=== PATIENT | female | born 1945 | race Caucasian/White ===

== ENCOUNTER 2017-03-25 18:05 | Emergency (ER) | payer OTHER ==
[2017-03-25 18:09] VITALS: BP 150/80; BMI 68.6
--- NOTE | 2017-03-25 18:37 | DR.GENAD ---
HPI - PCP Primary Care Physician: deric - HPI Comment HPI Comment: DENIES DYSURIA, DIZZINESS OR FEVER. BELIEVE BLOOD IS COMING FROM HER HEMORRHOID. PATIENT IS ON COUMADIN. - Complaint/Symptoms Chief Complaint Doctors Comments: RECTAL BLEEDING AND DISCOMFORT. ONE EPISODE LAST NIGHT AND ONE TODAY. Chief Complaint:: patient stated she startd bleeding from her bottom last night and it started back this evening. - Nurses notes reviewed Nurses Notes Review: Yes - Source History Provided: Patient - Mode of Arrival Mode of Arrival: Wheelchair - Timing Onset of Chief Complaint: 03/24/17 Came on: Suddenly - Duration Duration: Constant Duration: Days - Severity Severity: Moderate PMH - PMH Past Medical History: Yes Past Medical History: COPD, Coronary Artery Disease, Diabetes, GERD, Hypertension Past Surgical History: Yes Surgical History: Angioplasty/Stents, Hysterectomy, Ortho Surgery - Family History History of Family Medical Conditions: Yes Family Medical History: Diabetes Mellitus, Cancer, [place], Hypertension - Social History Does patient currently use any type of tobacco product: Yes Have you used tobacco products in the last 12 months: Yes Type of Tobacco Use: Cigarettes How many years tobacco product used: 40 Does any household member use tobacco: Yes Alcohol Use: None Do you use any recreational Drugs:: No Lives With: Family Lives Where: Home - infectious screening In the last 2 months have you had wt loss of >10#?: NO Have you had fever, night sweats or hemotysis?: No Have you traveled outside the country in the last 6 months?: No Isolation: Standard ROS - Review of Systems Constitutional: No Symptoms Reported Eyes: No Symptoms Reported ENTM: No Symptoms Reported Respiratoy: No Symptoms Reported Cardiovascular: No Symptoms Reported Gastrointestinal/Abdominal: No Symptoms Reported, Other (RECTAL BLEEDING.) Genitourinary: No Symptoms Reported Neurological: No Symptoms Reported Musculoskeletal: No Symptoms Reported Integumentary: No Symptoms Reported Hematologic/Lymphatic: No Symptoms Reported, Easy Bleeding, Easy Bruising Endocrine: No Symptoms Reported All Other Systems: Reviewed and Negative PE - Vital Signs Vitals: Temperature 98.9 F Pulse Rate 80 Respiratory Rate 16 Blood Pressure [Left Arm] 103/62 Blood Pressure 150/80 O2 Sat by Pulse Oximetry 100 - General Limitations: No Limitations General Appearance: Alert - Head Head Exam: Normal Inspection - Eyes Eye exam: Normal Appearance - ENT ENT Exam: Normal External Ear Exam External Ear Exam: Normal External Inspection TM/Canal Exam: Bilateral Normal Nose Exam: Normal Nose Exam Mouth Exam: Normal Inspection Throat Exam: Normal Inspection - Neck Neck Exam: Normal Inspection - Chest Chest Inspection: Symmetric Chest Wall Rise - Respiratory Respiratory Exam: Normal Lung Sounds Bilat Respiratory Exam: Bilateral Clear to Auscultation - Cardiovascular Cardiovascular Exam: Regular Rate, Normal Rhythm, Normal Heart Sounds - Abdominal Exam Abdominal Exam: Normal Bowel Sounds, Soft, Other (EXTERNAL HEMORRHOID WITH RECENT BLEEDING. NO ACTIVE BLEERTR). negative: Tenderness - Extremities Extremities Exam: Edema - Back Back Exam: Paraspinal Tenderness - Neurologic Neurological Exam: Alert, Oriented X3 - Psychiatric Psychiatric Exam: Normal Affect, Normal Mood - Skin Skin Exam: Erythema MDM - Additional Information Additional Information Obtained From: Family - Differential Diagnosis Differential Diagnosis: HEMORRHOID, RECTAL BLEEDING, COUMADIN THERAPY. Course - Treatment Treatment: SEE ORDERS. - Education/Counseling Education/Counseling: Patient, Education Educated On: Diagnosis, Needs for Follow Up ROR - Labs Reviewed Laboratory Results Reviewed?: Yes Result Diagrams: 03/25/17 18:51 03/25/17 18:51 Laboratory: WBC 6.3 X10^3/uL (3.6-10.0) 03/25/17 18:51 RBC 4.16 X10^6/uL (3.5-5.4) 03/25/17 18:51 Hgb 12.4 g/dL (12.0-16.0) 03/25/17 18:51 Hct 36.8 % (36.0-47.0) 03/25/17 18:51 MCV 88.6 fL (80.0-100.0) 03/25/17 18:51 MCH 29.9 pg (27.0-34.0) 03/25/17 18:51 MCHC 33.7 g/dL (33.0-35.0) 03/25/17 18:51 RDW 16.9 % (11.6-16.5) H 03/25/17 18:51 Plt Count 254 X10^3/uL (150.0-450.0) 03/25/17 18:51 MPV 8.9 fL (7.4-11.0) 03/25/17 18:51 Neut % 53.9 % (42.0-75.0) 03/25/17 18:51 Lymph % 33.8 % (21.0-51.0) 03/25/17 18:51 [place] % 10.8 % (0.0-13.0) 03/25/17 18:51 Eos % 0.9 % (0.9-2.9) 03/25/17 18:51 Baso % 0.6 % (0.2-1.0) 03/25/17 18:51 Neut # 3.4 x10^3/uL (2.2-4.8) 03/25/17 18:51 Lymph # 2.1 X10^3/uL (1.3-2.9) 03/25/17 18:51 [place] # 0.7 x10^3/uL (0.3-0.8) 03/25/17 18:51 Eos # 0.1 x10^3/uL (0.0-0.2) 03/25/17 18:51 Baso # 0.0 X10^3/uL (0.0-0.1) 03/25/17 18:51 Absolute Nucleated RBC 0.0 /100WBC 03/25/17 18:51 INR Target Range - 03/25/17 18:51 INR 1.86 (0.8-1.3) H 03/25/17 18:51 PTT 34.4 SECONDS (22.9-36.5) 03/25/17 18:51 PTT Comment - 03/25/17 18:51 Sodium 142 mmol/L (136-145) 03/25/17 18:51 Corrected Sodium 143 mmol/L (136-145) 03/25/17 18:51 Potassium 3.5 mmol/L (3.5-5.1) 03/25/17 18:51 Chloride 104 mmol/L (98-107) 03/25/17 18:51 Carbon Dioxide 27.9 mmol/L (21-32) 03/25/17 18:51 BUN 13 mg/dL (7-18) 03/25/17 18:51 Creatinine 1.10 mg/dL (0.55-1.02) H 03/25/17 18:51 Est GFR (MDRD) Af Amer > 60 (>60) 03/25/17 18:51 Est GFR (MDRD) Non-Af 52 (>60) L 03/25/17 18:51 Glucose 129 mg/dL (65-99) H 03/25/17 18:51 Calcium 8.8 mg/dL (8.5-10.1) 03/25/17 18:51 Corrected Calcium TNP 03/25/17 18:51 Total Bilirubin 0.40 mg/dL (0.2-1.0) 03/25/17 18:51 AST 15 Units/L (15-37) 03/25/17 18:51 ALT 23 Units/L (12-78) 03/25/17 18:51 Alkaline Phosphatase 66 Units/L (46-116) 03/25/17 18:51 Total Protein 8.2 g/dL (6.4-8.2) 03/25/17 18:51 Albumin 3.8 g/dL (3.4-5.0) 03/25/17 18:51 Globulin 4.4 g/dL (2.5-4.5) 03/25/17 18:51 Albumin/Globulin Ratio 0.9 Ratio (1.1-2.1) L 03/25/17 18:51 Specimen Type Clean catch urine 03/25/17 19:23 Urine Color Yellow (YELLOW) 03/25/17 19:23 Urine Appearance Hazy (CLEAR) 03/25/17 19:23 Urine pH 6.0 (5.0 - 8.0) 03/25/17 19:23 Ur Specific [place] 1.015 (1.000-1.030) 03/25/17 19:23 Urine Protein Negative (NEGATIVE) 03/25/17 19:23 Urine Glucose (UA) Negative (NEGATIVE) 03/25/17 19:23 Urine Ketones Negative (NEGATIVE) 03/25/17 19:23 Urine Occult Blood 2+ (NEGATIVE) 03/25/17 19:23 Urine Nitrite Negative (NEGATIVE) 03/25/17 19:23 Urine Bilirubin Negative (NEGATIVE) 03/25/17 19:23 Urine Urobilinogen Normal (NORMAL) 03/25/17 19:23 Ur Leukocyte Esterase Negative (NEGATIVE) 03/25/17 19:23 Urine RBC 0-2 /HPF (NEGATIVE) 03/25/17 19:23 Urine WBC 0-2 /HPF (NEGATIVE) 03/25/17 19:23 Ur Squamous Epith Cells Few /HPF (NEGATIVE) 03/25/17 19:23 Urine Bacteria Trace /HPF (NEGATIVE) 03/25/17 19:23 Ur Culture Indicated? No/not indicated 03/25/17 19:23 - Diagnosis Discharge Problem: Acute hemorrhoid, Rectal bleeding - Discharge Plan Disposition: 01 HOME, SELF-CARE Condition: Stable Prescriptions: Hydrocortisone Supp 25 mg [Anucort-Hc Supp] 25 mg RECTAL BID PRN #24 supp PRN Reason: Hemmorhoid Itching/Discomfort Ranitidine HCl [ZANTAC TAB 150 MG *] 150 mg PO BID #60 tab - Follow ups/Referrals Follow ups/Referrals: ELIZABETH DURAN [Primary Care Provider] - 03/26/17 - Instructions Instructions: Hemorrhoids, [id number], Gastrointestinal Bleeding, Easy-to- Read Additional Instructions: RETURN TO ED IF WORSE.
[2017-03-25 19:00] LABS: BASOPHILS % (AUTO) 0.6 % (0.2-1.0); EOSINOPHILS # (AUTO) 0.1 x10^3/uL (0.0-0.2); EOSINOPHILS % (AUTO) 0.9 % (0.9-2.9); HEMATOCRIT 36.8 % (36.0-47.0); HEMOGLOBIN 12.4 g/dL (12.0-16.0); LYMPHOCYTES # (AUTO) 2.1 X10^3/uL (1.3-2.9); LYMPHOCYTES % (AUTO) 33.8 % (21.0-51.0); MEAN CORPUSCULAR HEMOGLOBIN 29.9 pg (27.0-34.0); MEAN CORPUSCULAR HGB CONC 33.7 g/dL (33.0-35.0); MEAN CORPUSCULAR VOLUME 88.6 fL (80.0-100.0); MEAN PLATELET VOLUME 8.9 fL (7.4-11.0); MONOCYTES # (AUTO) 0.7 x10^3/uL (0.3-0.8); MONOCYTES % (AUTO) 10.8 % (0.0-13.0); NEUTROPHILS # (AUTO) 3.4 x10^3/uL (2.2-4.8); NEUTROPHILS % (AUTO) 53.9 % (42.0-75.0); PLATELET COUNT 254 X10^3/uL (150.0-450.0); RED BLOOD COUNT 4.16 X10^6/uL (3.5-5.4); RED CELL DISTRIBUTION WIDTH 16.9 % (11.6-16.5); WHITE BLOOD COUNT 6.3 X10^3/uL (3.6-10.0)
[2017-03-25 19:11] LABS: ALANINE AMINOTRANSFERASE 23 Units/L (12-78); ALBUMIN 3.8 g/dL (3.4-5.0); ALKALINE PHOSPHATASE 66 Units/L (46-116); ASPARTATE AMINO TRANSFERASE 15 Units/L (15-37); BLOOD UREA NITROGEN 13 mg/dL (7-18); CALCIUM 8.8 mg/dL (8.5-10.1); CARBON DIOXIDE 27.9 mmol/L (21-32); CHLORIDE 104 mmol/L (98-107); COR NA(FOR HYPERGLY) 143 mmol/L (136-145); SODIUM 142 mmol/L (136-145); TOTAL PROTEIN 8.2 g/dL (6.4-8.2); eGFR BLACK RACES > 60 (>60); eGFR NON BLACK RACES 52 (>60)
[2017-03-25 19:32] LABS: BILIRUBIN,URINE NEGATIVE (NEGATIVE); BLOOD/HEMOGLOBIN,URINE 2+ (NEGATIVE); GLUCOSE, URINE NEGATIVE (NEGATIVE); KETONES,URINE NEGATIVE (NEGATIVE); LEUKOCYTE ESTERASE ,URINE NEGATIVE (NEGATIVE); NITRITES,URINE NEGATIVE (NEGATIVE); PROTEIN,URINE NEGATIVE (NEGATIVE); UROBILINOGEN,URINE NORMAL (NORMAL)
[2017-03-25 19:38] LABS: APPEARANCE,URINE HAZY (CLEAR); BACTERIA,URINE TRACE /HPF (NEGATIVE); COLOR,URINE YELLOW (YELLOW); RBC,URINE 0-2 /HPF (NEGATIVE); SQUAMOUS EPITHELIAL CELL,UR FEW /HPF (NEGATIVE)
[2017-03-25] MEDS ORDERED: ANUCORT-HC SUPP PR ONE (19:54)
[2017-03-25] MEDS ORDERED: ZANTAC PO ONE (19:54)
== END 2017-03-25 20:03 | disposition home or self-care (01) ==
LOC: ER 18:14
DX: K64.8 Other hemorrhoids (principal); K62.5 Hemorrhage of anus and rectum
CPT/HCPCS: 36415; 80053; 81001; 85025; 85610; 85730; 99282; 99283

== ENCOUNTER 2017-03-26 13:40 | Observation (INO) | payer OTHER ==
[2017-03-26] MEDS ORDERED: HumuLIN R SUBCUT PRN ×2 (13:50→13:53)
[2017-03-26] MEDS ORDERED: NORCO 10/325 TAB PO PRN (13:52)
[2017-03-26] MEDS ORDERED: ZOFRAN INJ 4 MG VIAL IVP PRN (13:53)
--- NOTE | 2017-03-26 13:55 | DR.H&P ---
H&P - History & Physical for Day of: H&P Date: 03/26/17 - Chief Complaint Chief Complaint: RECTAL BLEEDING - Allergies Allergies/Adverse Reactions: Allergies Allergy/AdvReac Type Severity Reaction Status Date / Time No Known Drug Allergies Allergy Verified 03/25/17 18:06 - History of Present Illness History of Present Illness: patient is a 71-year-old white female who was a direct admit from Dr. Patel's office. Patient presented to the office today with complaints of rectal bleeding. Patient states she was seen in the ER last night and was discharged home. Patient is on Coumadin therapy due to atrophia. Patient states bleeding has been on and off for the last 2-3 weeks. Patient reports dark tarry stool and occasional large bloody clots in the toilet. Patient denies any nausea vomiting. Patient states if she is nothing by mouth diarrhea is controlled. Patient had a rectal exam in the office with nonthrombosed external hemorrhoids and no palpable internal hemorrhoids with a positive Hemoccult. Patient was admitted for further evaluation of rectal bleed. Plan to obtain admission labs, anemia panel, PT/INR, respiratory therapy and blood sugar and blood pressure control. - Past Medical History Past Medical History: COPD, Coronary Artery Disease, Diabetes, GERD, Hypertension - Past Surgical History Surgical History: Angioplasty/Stents, Hysterectomy, Ortho Surgery - Family History Family Medical History: Diabetes Mellitus, Cancer, [place], Hypertension - Social History Does patient currently use any type of tobacco product: Yes Have you used tobacco products in the last 12 months: Yes Type of Tobacco Use: Cigarettes Does any household member use tobacco: Yes Alcohol Use: None Drug Use: None - Review of Systems Constitutional: Weakness Eyes: No Symptoms Reported ENT: No Symptoms Reported Respiratory: Shortness of Breath, SOB with Excertion, Wheezing Cardiovascular: Palpitations, Edema, Light Headedness Gastrointestinal: Diarrhea, Hematochezia Genitourinary: Frequency Musculoskeletal: Shoulder Pain, Back Pain, Leg Pain Neurological: Weakness - Physical Exam Vital Signs: Blood Pressure [Left Arm] 103/62 Blood Pressure 150/80 Oriented: Normal Eyes: Normal Ear: Normal Nose: Normal Throat: Dry Respiratory: Diminished Throughout Cardiovascular: Irregular, Edema : Normal Auscultation: Bowel Sounds: Normal Tenderness: Epigastric Skin: Decreased Turgur Musculoskeletal: Shoulder, Knee, Back:Thoracic, Back:Lumbar, Motor Deficit Psychiatric: Depression Affect: Anxious Speech Pattern: Clear, Appropriate - Assessment/Plan (1) Lower GI bleed Status: Acute Plan: ADMIT, CBC CMP UA UC PT INR ON ADMISSION. ANEMIA PROFILE, OCCULT STOOL. PPI THERAPY, RESP CONSULT. ABD SERIES, IV CIPRO. BLOOD SUGAR CONTROL (2) Coronary Artery Disease Status: Active (3) Diabetes mellitus type 2 Status: Active (4) Essential hypertension Status: Active (5) Gastroesophageal reflux disease Status: Active
[2017-03-26] MEDS ORDERED: NS 1000 ML 1,000 ML IV SCH (14:00)
[2017-03-26 15:03] LABS: BASOPHILS # (AUTO) 0.1 X10^3/uL (0.0-0.1); EOSINOPHILS # (AUTO) 0.1 x10^3/uL (0.0-0.2); HEMATOCRIT 37.8 % (36.0-47.0); HEMOGLOBIN 12.7 g/dL (12.0-16.0); LYMPHOCYTES # (AUTO) 1.6 X10^3/uL (1.3-2.9); LYMPHOCYTES % (AUTO) 26.5 % (21.0-51.0); MEAN CORPUSCULAR HEMOGLOBIN 29.7 pg (27.0-34.0); MEAN CORPUSCULAR HGB CONC 33.5 g/dL (33.0-35.0); MEAN CORPUSCULAR VOLUME 88.8 fL (80.0-100.0); MEAN PLATELET VOLUME 9.4 fL (7.4-11.0); MONOCYTES # (AUTO) 0.6 x10^3/uL (0.3-0.8); MONOCYTES % (AUTO) 10.4 % (0.0-13.0); NEUTROPHILS # (AUTO) 3.7 x10^3/uL (2.2-4.8); NEUTROPHILS % (AUTO) 61.1 % (42.0-75.0); PLATELET COUNT 257 X10^3/uL (150.0-450.0); RED BLOOD COUNT 4.26 X10^6/uL (3.5-5.4); RED CELL DISTRIBUTION WIDTH 17.1 % (11.6-16.5); WHITE BLOOD COUNT 6.1 X10^3/uL (3.6-10.0)
[2017-03-26 15:37] LABS: BLOOD UREA NITROGEN 11 mg/dL (7-18); CARBON DIOXIDE 26.4 mmol/L (21-32); CHLORIDE 105 mmol/L (98-107); COR NA(FOR HYPERGLY) 144 mmol/L (136-145); CREATININE 1.27 mg/dL (0.55-1.02); SODIUM 143 mmol/L (136-145); TROPONIN I < 0.02 ng/mL (0-1.5); eGFR BLACK RACES 54 (>60); eGFR NON BLACK RACES 44 (>60)
[2017-03-26 15:41] LABS: ALANINE AMINOTRANSFERASE 23 Units/L (12-78); ALBUMIN 3.8 g/dL (3.4-5.0); ALKALINE PHOSPHATASE 68 Units/L (46-116); ASPARTATE AMINO TRANSFERASE 19 Units/L (15-37); CKMB % 0.9 % (<4); CREATINE KINASE 151 Units/L (26-192); CREATINE KINASE MB 1.4 ng/mL (0-4.0); MAGNESIUM 2.1 mg/dL (1.7-2.9); TOTAL PROTEIN 8.2 g/dL (6.4-8.2)
[2017-03-26 15:45] LABS: IRON 42 ug/dL (50-175); TRANSFERRIN 274 mg/dL (202-364)
[2017-03-26] MEDS: XOPENEX 1.25 MG/3 ML NEBULE NEB SCH ×2 (16:29→21:27)
[2017-03-26] MEDS ORDERED: XOPENEX 1.25 MG/3 ML NEBULE NEB SCH (17:00)
[2017-03-26] MEDS ORDERED: BUTT CREAM (COMPOUND) TOP PRN (19:02)
[2017-03-26] MEDS ORDERED: SNACK - Diabetic Appropriate PO SCH ×2 (20:00)
[2017-03-26] MEDS: CIPRO IV 400 MG PREMIX* 400 MG/200 ML IV.SOLN. IV SCH (20:03)
[2017-03-26] MEDS: PROTONIX INJ 40 MG VIAL IVP SCH (20:03)
[2017-03-26 20:32] LABS: BILIRUBIN,URINE NEGATIVE (NEGATIVE); BLOOD/HEMOGLOBIN,URINE 2+ (NEGATIVE); GLUCOSE, URINE NEGATIVE (NEGATIVE); KETONES,URINE NEGATIVE (NEGATIVE); LEUKOCYTE ESTERASE ,URINE NEGATIVE (NEGATIVE); NITRITES,URINE NEGATIVE (NEGATIVE); PROTEIN,URINE 1+ (NEGATIVE); UROBILINOGEN,URINE NORMAL (NORMAL)
[2017-03-26 20:37] LABS: APPEARANCE,URINE HAZY (CLEAR); BACTERIA,URINE TRACE /HPF (NEGATIVE); COLOR,URINE YELLOW (YELLOW); SQUAMOUS EPITHELIAL CELL,UR FEW /HPF (NEGATIVE)
[2017-03-26] MEDS ORDERED: PULMICORT NEB TX 0.5 MG NEB SCH (21:00)
[2017-03-26] MEDS: SNACK - Diabetic Appropriate PO SCH (21:00)
[2017-03-26] MEDS: PULMICORT NEB TX 0.5 MG NEB SCH (21:27)
[2017-03-26] MEDS: NORCO 10/325 TAB PO PRN (21:42)
[2017-03-27 06:05] LABS: BASOPHILS % (AUTO) 0.5 % (0.2-1.0); EOSINOPHILS # (AUTO) 0.1 x10^3/uL (0.0-0.2); EOSINOPHILS % (AUTO) 1.6 % (0.9-2.9); HEMATOCRIT 30.3 % (36.0-47.0); HEMOGLOBIN 10.2 g/dL (12.0-16.0); LYMPHOCYTES # (AUTO) 1.3 X10^3/uL (1.3-2.9); LYMPHOCYTES % (AUTO) 28.1 % (21.0-51.0); MEAN CORPUSCULAR HEMOGLOBIN 29.9 pg (27.0-34.0); MEAN CORPUSCULAR HGB CONC 33.5 g/dL (33.0-35.0); MEAN CORPUSCULAR VOLUME 89.2 fL (80.0-100.0); MEAN PLATELET VOLUME 9.9 fL (7.4-11.0); MONOCYTES # (AUTO) 0.6 x10^3/uL (0.3-0.8); MONOCYTES % (AUTO) 13.5 % (0.0-13.0); NEUTROPHILS # (AUTO) 2.5 x10^3/uL (2.2-4.8); NEUTROPHILS % (AUTO) 56.3 % (42.0-75.0); PLATELET COUNT 192 X10^3/uL (150.0-450.0); RED CELL DISTRIBUTION WIDTH 16.5 % (11.6-16.5); WHITE BLOOD COUNT 4.5 X10^3/uL (3.6-10.0)
[2017-03-27 06:07] LABS: ALANINE AMINOTRANSFERASE 18 Units/L (12-78); ALBUMIN 2.8 g/dL (3.4-5.0); ALKALINE PHOSPHATASE 55 Units/L (46-116); ASPARTATE AMINO TRANSFERASE 15 Units/L (15-37); BLOOD UREA NITROGEN 11 mg/dL (7-18); CALCIUM 8.2 mg/dL (8.5-10.1); CARBON DIOXIDE 27.5 mmol/L (21-32); CHLORIDE 107 mmol/L (98-107); COR CA(FOR HYPOALB) 9.2 mg/dL (8.5-10.1); COR NA(FOR HYPERGLY) 144 mmol/L (136-145); CREATININE 1.01 mg/dL (0.55-1.02); SODIUM 143 mmol/L (136-145); TOTAL PROTEIN 6.3 g/dL (6.4-8.2); eGFR BLACK RACES > 60 (>60); eGFR NON BLACK RACES 58 (>60)
[2017-03-27] MEDS ORDERED: MAG-OX TAB PO PRN (06:33)
[2017-03-27] MEDS ORDERED: K-DUR TAB 20 MEQ PO PRN (06:33)
[2017-03-27] MEDS ORDERED: MAGNESIUM SULFATE 1 GM/100 mL PREMIX 1 GM/100 ML BAG IV PRN (06:33)
[2017-03-27] MEDS ORDERED: POTASSIUM CHLORIDE LIQ 20 MEQ UDC PO PRN (06:33)
[2017-03-27] MEDS ORDERED: K-RIDER 10 MEQ/NS 100 ML 10 MEQ/100 ML BAG IV PRN (06:33)
[2017-03-27] MEDS ORDERED: K-LYTE EFFERVESCENT PO PRN (06:33)
[2017-03-27] MEDS: NORCO 10/325 TAB PO PRN ×2 (07:39→18:02)
[2017-03-27] MEDS: NICOTINE PATCH TD SCH (08:59)
[2017-03-27] MEDS: CIPRO IV 400 MG PREMIX* 400 MG/200 ML IV.SOLN. IV SCH ×2 (09:00→21:46)
[2017-03-27] MEDS: PROTONIX INJ 40 MG VIAL IVP SCH ×2 (09:00→21:46)
[2017-03-27] MEDS: XOPENEX 1.25 MG/3 ML NEBULE NEB SCH ×4 (09:05→20:43)
[2017-03-27] MEDS: PULMICORT NEB TX 0.5 MG NEB SCH ×2 (09:05→20:43)
[2017-03-27] MEDS ORDERED: PATIENT'S HOME MEDICATION (Albuterol Sulfate [Proventil Hfa Inhaler 6.7 Gm] 2 INH) IN PRN (09:43)
[2017-03-27 10:12] LABS: HEMATOCRIT 33.3 % (36.0-47.0); HEMOGLOBIN 11.1 g/dL (12.0-16.0)
[2017-03-27 10:37] VITALS: BMI 70.7
[2017-03-27] MEDS: LASIX PO SCH ×2 (14:13→21:49)
[2017-03-27] MEDS: K-DUR TAB 20 MEQ PO SCH ×2 (14:13→21:48)
[2017-03-27] MEDS: NEURONTIN CAP 300 MG PO SCH ×2 (14:13→21:49)
--- NOTE | 2017-03-27 14:22 | RAD ---
HISTORY: Rectal bleeding Study: Acute abdominal series Comparison: None Findings: There is a dual-chamber pacemaker in place. The lungs are clear without consolidation, effusion or pn eumothorax. The cardiac and mediastinal contours are within normal limits. Flat plate and upright evaluation of the abdomen demonstrates a normal bowel gas pattern. No gross fr ee intraperitoneal air. No pathological soft tissue mass or calcification can be observed. The bony structures are grossly intact. IMPRESSION: 1. No acute cardiopulmonary disease. 2. No evidence of acute abdominal pathology. Reported By:
[2017-03-27] MEDS ORDERED: NS 1000 ML 500 ML IV SCH (17:43)
[2017-03-27] MEDS ORDERED: NS 500 ML IV 500 ML IV SCH (17:45)
[2017-03-27] MEDS ORDERED: NS 500 ML IV 500 ML IV ONE (17:46)
[2017-03-27] MEDS ORDERED: NS IRRIGATION 1000 ML 500 ML IV SCH (18:11)
[2017-03-27] MEDS ORDERED: GLUCOPHAGE ONE (20:17)
[2017-03-27] MEDS ORDERED: ZESTRIL TAB 20 MG ONE (20:18)
[2017-03-27] MEDS: ZESTRIL TAB 20 MG PO SCH (21:48)
[2017-03-27] MEDS: ZANTAC PO SCH (21:49)
[2017-03-27] MEDS: LOPRESSOR TAB 50 MG PO SCH (21:49)
[2017-03-27] MEDS: GLUCOPHAGE PO SCH (21:49)
[2017-03-27] MEDS: SNACK - Diabetic Appropriate PO SCH (21:50)
--- NOTE | 2017-03-27 22:14 | PCM.PROG ---
Progress Note - Progress Note for Day of Date: 03/27/17 - Subjective Subjective: patient is a 71-year-old white female who was a direct admit from Dr. Patel's office. Patient presented to the office today with complaints of rectal bleeding. Patient states she was seen in the ER last night and was discharged home. Patient is on Coumadin therapy due to atrophia. Patient states bleeding has been on and off for the last 2-3 weeks. Patient reports dark tarry stool and occasional large bloody clots in the toilet. Patient denies any nausea vomiting. Patient states if she is nothing by mouth diarrhea is controlled. Patient had a rectal exam in the office with nonthrombosed external hemorrhoids and no palpable internal hemorrhoids with a positive Hemoccult. Patient denies any further bleeding. States that 2 days ago was last episode. Currently has CPAP on. - Past Medical Family Social History Past Med/Fam/Surg Hx: No changes since H&P Allergies: Allergies No Known Drug Allergies Allergy (Verified 03/25/17 18:06) - Vital Signs and I&O's Vital Signs: Temperature 97.6 F Pulse Rate [Left Radial] 86 Pulse Rate 78 Respiratory Rate 20 Blood Pressure [Right Arm] 108/52 Blood Pressure [Left Arm] 160/64 Blood Pressure 150/80 O2 Sat by Pulse Oximetry 98 Intake and Output: Intake & Output 03/25/17 03/26/17 03/27/17 03/28/17 11:59 11:59 11:59 11:59 Intake Total 1452 1540 Output Total 500 Balance 1452 1040 - Physical Exam Oriented: Normal Eyes: Normal Ear: Normal Nose: Normal Throat: Dry Respiratory: Diminished, OTHER (CPAP USAGE) Cardiovascular: Irregular, Edema : Normal Auscultation: Bowel Sounds: Normal Palpation: Normal Tenderness: Diffuse, Epigastric Skin: Decreased Turgur Musculoskeletal: Shoulder, Knee, Back:Thoracic, Back:Lumbar, Motor Deficit Psychiatric: Depression Affect: Anxious Speech Pattern: Clear, Appropriate - Laboratory and Diagnostics Result Diagrams: 03/27/17 09:53 03/27/17 10:54 Labs: Laboratory WBC 4.5 X10^3/uL (3.6-10.0) 03/27/17 03:30 RBC 3.40 X10^6/uL (3.5-5.4) L 03/27/17 03:30 Hgb 11.1 g/dL (12.0-16.0) L 03/27/17 09:53 Hct 33.3 % (36.0-47.0) L 03/27/17 09:53 MCV 89.2 fL (80.0-100.0) 03/27/17 03:30 MCH 29.9 pg (27.0-34.0) 03/27/17 03:30 MCHC 33.5 g/dL (33.0-35.0) 03/27/17 03:30 RDW 16.5 % (11.6-16.5) 03/27/17 03:30 Plt Count 192 X10^3/uL (150.0-450.0) 03/27/17 03:30 MPV 9.9 fL (7.4-11.0) 03/27/17 03:30 Neut % 56.3 % (42.0-75.0) 03/27/17 03:30 Lymph % 28.1 % (21.0-51.0) 03/27/17 03:30 [place] % 13.5 % (0.0-13.0) H 03/27/17 03:30 Eos % 1.6 % (0.9-2.9) 03/27/17 03:30 Baso % 0.5 % (0.2-1.0) 03/27/17 03:30 Neut # 2.5 x10^3/uL (2.2-4.8) 03/27/17 03:30 Lymph # 1.3 X10^3/uL (1.3-2.9) 03/27/17 03:30 [place] # 0.6 x10^3/uL (0.3-0.8) 03/27/17 03:30 Eos # 0.1 x10^3/uL (0.0-0.2) 03/27/17 03:30 Baso # 0.0 X10^3/uL (0.0-0.1) 03/27/17 03:30 Absolute Nucleated RBC 0.0 /100WBC 03/27/17 03:30 INR Target Range - 03/26/17 14:55 INR 1.69 (0.8-1.3) H 03/26/17 14:55 Sodium 143 mmol/L (136-145) 03/27/17 03:30 Corrected Sodium 144 mmol/L (136-145) 03/27/17 03:30 Potassium 3.8 mmol/L (3.5-5.1) 03/27/17 10:54 Chloride 107 mmol/L (98-107) 03/27/17 03:30 Carbon Dioxide 27.5 mmol/L (21-32) 03/27/17 03:30 BUN 11 mg/dL (7-18) 03/27/17 03:30 Creatinine 1.01 mg/dL (0.55-1.02) 03/27/17 03:30 Est GFR (MDRD) Af Amer > 60 (>60) 03/27/17 03:30 Est GFR (MDRD) Non-Af 58 (>60) L 03/27/17 03:30 Glucose 137 mg/dL (65-99) H 03/27/17 03:30 POC Glucose (mg/dL) 164 mg/dL (65-99) H 03/27/17 21:57 Calcium 8.2 mg/dL (8.5-10.1) L 03/27/17 03:30 Corrected Calcium 9.2 mg/dL (8.5-10.1) 03/27/17 03:30 Magnesium 2.0 mg/dL (1.7-2.9) 03/27/17 03:30 Iron 42 ug/dL (50-175) L 03/26/17 14:55 Transferrin 274 mg/dL (202-364) 03/26/17 14:55 Ferritin 27 ng/mL (8-252) 03/26/17 14:55 Total Bilirubin 0.30 mg/dL (0.2-1.0) 03/27/17 03:30 AST 15 Units/L (15-37) 03/27/17 03:30 ALT 18 Units/L (12-78) 03/27/17 03:30 Alkaline Phosphatase 55 Units/L (46-116) 03/27/17 03:30 Creatine Kinase 151 Units/L (26-192) 03/26/17 14:55 CK-MB (CK-2) 1.4 ng/mL (0-4.0) 03/26/17 14:55 CK/CKMB % Calc 0.9 % (<4) 03/26/17 14:55 Troponin I < 0.02 ng/mL (0-1.5) 03/26/17 14:55 Total Protein 6.3 g/dL (6.4-8.2) L 03/27/17 03:30 Albumin 2.8 g/dL (3.4-5.0) L 03/27/17 03:30 Globulin 3.5 g/dL (2.5-4.5) 03/27/17 03:30 Albumin/Globulin Ratio 0.8 Ratio (1.1-2.1) L 03/27/17 03:30 Vitamin B12 528 pg/mL (193-986) 03/26/17 14:55 Folate > 20.0 ng/mL (>8.6) 03/26/17 14:55 Specimen Type Clean catch urine 03/26/17 19:41 Urine Color Yellow (YELLOW) 03/26/17 19:41 Urine Appearance Hazy (CLEAR) 03/26/17 19:41 Urine pH 6.0 (5.0 - 8.0) 03/26/17 19:41 Ur Specific [place] 1.015 (1.000-1.030) 03/26/17 19:41 Urine Protein 1+ (NEGATIVE) 03/26/17 19:41 Urine Glucose (UA) Negative (NEGATIVE) 03/26/17 19:41 Urine Ketones Negative (NEGATIVE) 03/26/17 19:41 Urine Occult Blood 2+ (NEGATIVE) 03/26/17 19:41 Urine Nitrite Negative (NEGATIVE) 03/26/17 19:41 Urine Bilirubin Negative (NEGATIVE) 03/26/17 19:41 Urine Urobilinogen Normal (NORMAL) 03/26/17 19:41 Ur Leukocyte Esterase Negative (NEGATIVE) 03/26/17 19:41 Urine RBC 3-5 /HPF (NEGATIVE) 03/26/17 19:41 Urine WBC 0-2 /HPF (NEGATIVE) 03/26/17 19:41 Ur Squamous Epith Cells Few /HPF (NEGATIVE) 03/26/17 19:41 Urine Bacteria Trace /HPF (NEGATIVE) 03/26/17 19:41 Ur Culture Indicated? No/not indicated 03/26/17 19:41 Stool Description 40 grs brown soft 03/27/17 06:26 Stl Occult Blood (IFOB) Negative (NEGATIVE) 03/27/17 06:26 Radiology Reviewed: Yes - Plan (1) Lower GI bleed Status: Acute Plan: H/H, MONITOR STOOLS (2) Coronary Artery Disease Status: Active Plan: MONITOR INR (3) Diabetes mellitus type 2 Status: Active Plan: MONITOR FSBS. SSRI COVERAGE (4) Essential hypertension Status: Active Plan: MONITOR BP. ADMINISTER ANTI-HYPERTENSIVES. (5) Gastroesophageal reflux disease Status: Active Plan: PPI (6) Acute hemorrhoid Status: Acute Plan: MONITOR FOR THROMBOSIS OR BLEEDING. (7) Rectal bleeding Status: Acute Plan: MONITOR BMS
[2017-03-28 05:24] LABS: BASOPHILS % (AUTO) 0.7 % (0.2-1.0); EOSINOPHILS # (AUTO) 0.1 x10^3/uL (0.0-0.2); EOSINOPHILS % (AUTO) 1.9 % (0.9-2.9); HEMATOCRIT 32.2 % (36.0-47.0); HEMOGLOBIN 10.7 g/dL (12.0-16.0); LYMPHOCYTES # (AUTO) 1.2 X10^3/uL (1.3-2.9); LYMPHOCYTES % (AUTO) 25.8 % (21.0-51.0); MEAN CORPUSCULAR HEMOGLOBIN 29.8 pg (27.0-34.0); MEAN CORPUSCULAR HGB CONC 33.4 g/dL (33.0-35.0); MEAN CORPUSCULAR VOLUME 89.2 fL (80.0-100.0); MEAN PLATELET VOLUME 9.8 fL (7.4-11.0); MONOCYTES # (AUTO) 0.6 x10^3/uL (0.3-0.8); MONOCYTES % (AUTO) 13.3 % (0.0-13.0); NEUTROPHILS # (AUTO) 2.8 x10^3/uL (2.2-4.8); NEUTROPHILS % (AUTO) 58.3 % (42.0-75.0); PLATELET COUNT 196 X10^3/uL (150.0-450.0); RED CELL DISTRIBUTION WIDTH 16.6 % (11.6-16.5); WHITE BLOOD COUNT 4.7 X10^3/uL (3.6-10.0)
[2017-03-28 05:31] LABS: BLOOD UREA NITROGEN 8 mg/dL (7-18); CALCIUM 8.2 mg/dL (8.5-10.1); CARBON DIOXIDE 25.2 mmol/L (21-32); CHLORIDE 107 mmol/L (98-107); SODIUM 143 mmol/L (136-145); eGFR BLACK RACES > 60 (>60); eGFR NON BLACK RACES 58 (>60)
[2017-03-28] MEDS: NEURONTIN CAP 300 MG PO SCH ×3 (05:46→21:06)
[2017-03-28] MEDS: NORCO 10/325 TAB PO PRN ×3 (05:46→23:33)
[2017-03-28] MEDS: LASIX PO SCH ×3 (05:46→21:05)
[2017-03-28] MEDS: K-DUR TAB 20 MEQ PO SCH ×3 (05:47→21:05)
[2017-03-28] MEDS ORDERED: COLACE CAP 100 MG PO PRN (05:49)
[2017-03-28] MEDS: PULMICORT NEB TX 0.5 MG NEB SCH ×2 (08:27→20:53)
[2017-03-28] MEDS: XOPENEX 1.25 MG/3 ML NEBULE NEB SCH ×4 (08:27→20:53)
[2017-03-28] MEDS ORDERED: NIACIN 750 MG PO SCH (09:00)
[2017-03-28] MEDS ORDERED: GLUCOPHAGE ONE ×2 (09:37→20:26)
[2017-03-28] MEDS ORDERED: ZESTRIL TAB 20 MG ONE ×2 (09:38→20:27)
[2017-03-28] MEDS: CIPRO IV 400 MG PREMIX* 400 MG/200 ML IV.SOLN. IV SCH ×2 (10:16→21:04)
[2017-03-28] MEDS: TAB-A-VITE PO SCH (10:17)
[2017-03-28] MEDS: LOPRESSOR TAB 50 MG PO SCH ×2 (10:17→21:05)
[2017-03-28] MEDS: LIPITOR TAB 40 MG PO SCH (10:17)
[2017-03-28] MEDS: ZESTRIL TAB 20 MG PO SCH ×2 (10:17→21:04)
[2017-03-28] MEDS: GLUCOPHAGE PO SCH ×2 (10:17→21:05)
[2017-03-28] MEDS: PROTONIX INJ 40 MG VIAL IVP SCH ×2 (10:17→21:04)
[2017-03-28] MEDS: ACTOS PO SCH (10:18)
[2017-03-28] MEDS: NICOTINE PATCH TD SCH (10:18)
[2017-03-28] MEDS: ZANTAC PO SCH ×2 (10:18→21:05)
[2017-03-28] MEDS: SNACK - Diabetic Appropriate PO SCH (21:03)
--- NOTE | 2017-03-28 21:46 | PCM.PROG ---
Progress Note - Progress Note for Day of Date: 03/28/17 - Subjective Subjective: patient is a 71-year-old white female who was a direct admit from Dr. Patel's office. Patient presented to the office today with complaints of rectal bleeding. Patient states she was seen in the ER last night and was discharged home. Patient is on Coumadin therapy due to atrophia. Patient states bleeding has been on and off for the last 2-3 weeks. Patient reports dark tarry stool and occasional large bloody clots in the toilet. Patient denies any nausea vomiting. Patient states if she is nothing by mouth diarrhea is controlled. Patient had a rectal exam in the office with nonthrombosed external hemorrhoids and no palpable internal hemorrhoids with a positive Hemoccult. Patient denies any further bleeding. Patient sitting on side of bed states she feels better. Does ask about going home. States she had a BM and it was dark brown. States that there was pink in the BSC and on the seat. - Past Medical Family Social History Past Med/Fam/Surg Hx: No changes since H&P Allergies: Allergies No Known Drug Allergies Allergy (Verified 03/25/17 18:06) - Review of Systems ROS: No change since H&P - Vital Signs and I&O's Vital Signs: Temperature 97.7 F Pulse Rate [Right Brachial] 60 Pulse Rate [Left Radial] 67 Pulse Rate 78 Respiratory Rate 20 Blood Pressure [Right Arm] 119/58 Blood Pressure [Left Arm] 130/60 Blood Pressure 150/80 O2 Sat by Pulse Oximetry 100 Intake and Output: Intake & Output 03/26/17 03/27/17 03/28/17 03/29/17 11:59 11:59 11:59 11:59 Intake Total 1452 3650 1200 Output Total 1850 Balance 1452 1800 1200 - Physical Exam Oriented: Normal Eyes: Normal Ear: Normal Nose: Normal Throat: Dry Respiratory: Diminished, OTHER (CPAP USAGE) Cardiovascular: Irregular, Edema : Normal Auscultation: Bowel Sounds: Normal Tenderness: Diffuse, Epigastric Skin: Decreased Turgur Musculoskeletal: Shoulder, Knee, Back:Thoracic, Back:Lumbar, Motor Deficit Psychiatric: Depression Affect: Anxious Speech Pattern: Clear, Appropriate - Laboratory and Diagnostics Result Diagrams: 03/28/17 03:05 03/28/17 03:05 Labs: Laboratory WBC 4.7 X10^3/uL (3.6-10.0) 03/28/17 03:05 RBC 3.60 X10^6/uL (3.5-5.4) 03/28/17 03:05 Hgb 10.7 g/dL (12.0-16.0) L 03/28/17 03:05 Hct 32.2 % (36.0-47.0) L 03/28/17 03:05 MCV 89.2 fL (80.0-100.0) 03/28/17 03:05 MCH 29.8 pg (27.0-34.0) 03/28/17 03:05 MCHC 33.4 g/dL (33.0-35.0) 03/28/17 03:05 RDW 16.6 % (11.6-16.5) H 03/28/17 03:05 Plt Count 196 X10^3/uL (150.0-450.0) 03/28/17 03:05 MPV 9.8 fL (7.4-11.0) 03/28/17 03:05 Neut % 58.3 % (42.0-75.0) 03/28/17 03:05 Lymph % 25.8 % (21.0-51.0) 03/28/17 03:05 [place] % 13.3 % (0.0-13.0) H 03/28/17 03:05 Eos % 1.9 % (0.9-2.9) 03/28/17 03:05 Baso % 0.7 % (0.2-1.0) 03/28/17 03:05 Neut # 2.8 x10^3/uL (2.2-4.8) 03/28/17 03:05 Lymph # 1.2 X10^3/uL (1.3-2.9) L 03/28/17 03:05 [place] # 0.6 x10^3/uL (0.3-0.8) 03/28/17 03:05 Eos # 0.1 x10^3/uL (0.0-0.2) 03/28/17 03:05 Baso # 0.0 X10^3/uL (0.0-0.1) 03/28/17 03:05 Absolute Nucleated RBC 0.1 /100WBC 03/28/17 03:05 INR Target Range - 03/26/17 14:55 INR 1.69 (0.8-1.3) H 03/26/17 14:55 Sodium 143 mmol/L (136-145) 03/28/17 03:05 Corrected Sodium TNP 03/28/17 03:05 Potassium 3.6 mmol/L (3.5-5.1) 03/28/17 03:05 Chloride 107 mmol/L (98-107) 03/28/17 03:05 Carbon Dioxide 25.2 mmol/L (21-32) 03/28/17 03:05 BUN 8 mg/dL (7-18) 03/28/17 03:05 Creatinine 1.00 mg/dL (0.55-1.02) 03/28/17 03:05 Est GFR (MDRD) Af Amer > 60 (>60) 03/28/17 03:05 Est GFR (MDRD) Non-Af 58 (>60) L 03/28/17 03:05 Glucose 101 mg/dL (65-99) H 03/28/17 03:05 POC Glucose (mg/dL) 106 mg/dL (65-99) H 03/28/17 20:49 Calcium 8.2 mg/dL (8.5-10.1) L 03/28/17 03:05 Corrected Calcium 9.2 mg/dL (8.5-10.1) 03/27/17 03:30 Magnesium 2.0 mg/dL (1.7-2.9) 03/27/17 03:30 Iron 42 ug/dL (50-175) L 03/26/17 14:55 Transferrin 274 mg/dL (202-364) 03/26/17 14:55 Ferritin 27 ng/mL (8-252) 03/26/17 14:55 Total Bilirubin 0.30 mg/dL (0.2-1.0) 03/27/17 03:30 AST 15 Units/L (15-37) 03/27/17 03:30 ALT 18 Units/L (12-78) 03/27/17 03:30 Alkaline Phosphatase 55 Units/L (46-116) 03/27/17 03:30 Creatine Kinase 151 Units/L (26-192) 03/26/17 14:55 CK-MB (CK-2) 1.4 ng/mL (0-4.0) 03/26/17 14:55 CK/CKMB % Calc 0.9 % (<4) 03/26/17 14:55 Troponin I < 0.02 ng/mL (0-1.5) 03/26/17 14:55 Total Protein 6.3 g/dL (6.4-8.2) L 03/27/17 03:30 Albumin 2.8 g/dL (3.4-5.0) L 03/27/17 03:30 Globulin 3.5 g/dL (2.5-4.5) 03/27/17 03:30 Albumin/Globulin Ratio 0.8 Ratio (1.1-2.1) L 03/27/17 03:30 Vitamin B12 528 pg/mL (193-986) 03/26/17 14:55 Folate > 20.0 ng/mL (>8.6) 03/26/17 14:55 Specimen Type Clean catch urine 03/26/17 19:41 Urine Color Yellow (YELLOW) 03/26/17 19:41 Urine Appearance Hazy (CLEAR) 03/26/17 19:41 Urine pH 6.0 (5.0 - 8.0) 03/26/17 19:41 Ur Specific [place] 1.015 (1.000-1.030) 03/26/17 19:41 Urine Protein 1+ (NEGATIVE) 03/26/17 19:41 Urine Glucose (UA) Negative (NEGATIVE) 03/26/17 19:41 Urine Ketones Negative (NEGATIVE) 03/26/17 19:41 Urine Occult Blood 2+ (NEGATIVE) 03/26/17 19:41 Urine Nitrite Negative (NEGATIVE) 03/26/17 19:41 Urine Bilirubin Negative (NEGATIVE) 03/26/17 19:41 Urine Urobilinogen Normal (NORMAL) 03/26/17 19:41 Ur Leukocyte Esterase Negative (NEGATIVE) 03/26/17 19:41 Urine RBC 3-5 /HPF (NEGATIVE) 03/26/17 19:41 Urine WBC 0-2 /HPF (NEGATIVE) 03/26/17 19:41 Ur Squamous Epith Cells Few /HPF (NEGATIVE) 03/26/17 19:41 Urine Bacteria Trace /HPF (NEGATIVE) 03/26/17 19:41 Ur Culture Indicated? No/not indicated 03/26/17 19:41 Stool Description 40 grs brown soft 03/27/17 06:26 Stl Occult Blood (IFOB) Negative (NEGATIVE) 03/27/17 06:26 - Plan (1) Lower GI bleed Status: Acute Plan: H/H, MONITOR STOOLS. CT Abd/pelvis pending. (2) Coronary Artery Disease Status: Active Plan: MONITOR INR (3) Diabetes mellitus type 2 Status: Active Plan: MONITOR FSBS. [employer] COVERAGE (4) Essential hypertension Status: Active Plan: MONITOR BP. ADMINISTER ANTI-HYPERTENSIVES. (5) Gastroesophageal reflux disease Status: Active Plan: PPI (6) Acute hemorrhoid Status: Acute Plan: MONITOR FOR THROMBOSIS OR BLEEDING. (7) Rectal bleeding Status: Acute Plan: MONITOR BMS
[2017-03-29] MEDS: NEURONTIN CAP 300 MG PO SCH (05:06)
[2017-03-29] MEDS: K-DUR TAB 20 MEQ PO SCH (05:07)
[2017-03-29] MEDS: LASIX PO SCH (05:07)
[2017-03-29 05:16] LABS: BASOPHILS % (AUTO) 0.6 % (0.2-1.0); EOSINOPHILS # (AUTO) 0.1 x10^3/uL (0.0-0.2); EOSINOPHILS % (AUTO) 2.7 % (0.9-2.9); HEMATOCRIT 32.8 % (36.0-47.0); HEMOGLOBIN 10.9 g/dL (12.0-16.0); LYMPHOCYTES # (AUTO) 1.2 X10^3/uL (1.3-2.9); LYMPHOCYTES % (AUTO) 27.1 % (21.0-51.0); MEAN CORPUSCULAR HEMOGLOBIN 29.7 pg (27.0-34.0); MEAN CORPUSCULAR HGB CONC 33.1 g/dL (33.0-35.0); MEAN CORPUSCULAR VOLUME 89.8 fL (80.0-100.0); MONOCYTES # (AUTO) 0.6 x10^3/uL (0.3-0.8); MONOCYTES % (AUTO) 13.7 % (0.0-13.0); NEUTROPHILS # (AUTO) 2.6 x10^3/uL (2.2-4.8); NEUTROPHILS % (AUTO) 55.9 % (42.0-75.0); PLATELET COUNT 189 X10^3/uL (150.0-450.0); RED BLOOD COUNT 3.65 X10^6/uL (3.5-5.4); RED CELL DISTRIBUTION WIDTH 16.6 % (11.6-16.5); WHITE BLOOD COUNT 4.6 X10^3/uL (3.6-10.0)
[2017-03-29 05:28] LABS: ALANINE AMINOTRANSFERASE 23 Units/L (12-78); ALKALINE PHOSPHATASE 87 Units/L (46-116); ASPARTATE AMINO TRANSFERASE 22 Units/L (15-37); BLOOD UREA NITROGEN 10 mg/dL (7-18); CALCIUM 7.9 mg/dL (8.5-10.1); CARBON DIOXIDE 27.7 mmol/L (21-32); CHLORIDE 105 mmol/L (98-107); COR CA(FOR HYPOALB) 8.7 mg/dL (8.5-10.1); COR NA(FOR HYPERGLY) 143 mmol/L (136-145); CREATININE 1.04 mg/dL (0.55-1.02); SODIUM 142 mmol/L (136-145); TOTAL PROTEIN 6.9 g/dL (6.4-8.2); eGFR BLACK RACES > 60 (>60); eGFR NON BLACK RACES 56 (>60)
[2017-03-29] MEDS ORDERED: GLUCOPHAGE ONE (07:49)
[2017-03-29] MEDS ORDERED: ZESTRIL TAB 20 MG ONE (07:50)
[2017-03-29] MEDS: GLUCOPHAGE PO SCH (09:15)
[2017-03-29] MEDS: LIPITOR TAB 40 MG PO SCH (09:15)
[2017-03-29] MEDS: LOPRESSOR TAB 50 MG PO SCH (09:15)
[2017-03-29] MEDS: TAB-A-VITE PO SCH (09:15)
[2017-03-29] MEDS: CIPRO IV 400 MG PREMIX* 400 MG/200 ML IV.SOLN. IV SCH (09:15)
[2017-03-29] MEDS: ZESTRIL TAB 20 MG PO SCH (09:15)
[2017-03-29] MEDS: NICOTINE PATCH TD SCH (09:15)
[2017-03-29] MEDS: ZANTAC PO SCH (09:16)
[2017-03-29] MEDS: PROTONIX INJ 40 MG VIAL IVP SCH (09:16)
[2017-03-29] MEDS: ACTOS PO SCH (09:16)
[2017-03-29] MEDS: NORCO 10/325 TAB PO PRN (09:20)
[2017-03-29] MEDS ORDERED: ELIQUIS PO SCH (09:30)
[2017-03-29] MEDS: XOPENEX 1.25 MG/3 ML NEBULE NEB SCH (10:03)
[2017-03-29] MEDS: PULMICORT NEB TX 0.5 MG NEB SCH (10:04)
[2017-03-29 12:53] VITALS: BP 112/56
== END 2017-03-29 13:14 | disposition home or self-care (01) ==
LOC: MED/SURG 13:40 → UNDOADMOB 13:40 → MED/SURG 14:35
PROVIDERS: ADMIT Internal Medicine; ATTEND Internal Medicine
DX: K92.2 Gastrointestinal hemorrhage, unspecified (principal); K62.5 Hemorrhage of anus and rectum; Z79.01 Long term (current) use of anticoagulants; J44.9 Chronic obstructive pulmonary disease, unspecified; I25.10 Atherosclerotic heart disease of native coronary artery without angina pectoris; K21.9 Gastro-esophageal reflux disease without esophagitis; I48.91 Unspecified atrial fibrillation; I50.9 Heart failure, unspecified; F41.8 Other specified anxiety disorders; I10 Essential (primary) hypertension; F32.89 Other specified depressive episodes; M13.89 Other specified arthritis, multiple sites; K64.8 Other hemorrhoids; Z79.899 Other long term (current) drug therapy
CPT/HCPCS: 36415; 74022; 74176; 80048; 80053; 81001; 82270; 82550; 82553; 82607; 82728; 82746; 83540; 83735; 84132; 84466; 84484; 85014; 85018; 85025; 85610; 93005; 93010; 94640; 94760; A4222; C9113; G0378; J0744; J7626

== ENCOUNTER 2017-05-21 09:30 | Day surgery (SDC) | payer OTHER ==
[2017-05-21] MEDS ORDERED: D5 LR 1000 ML 1,000 ML IV ONE (09:40)
[2017-05-21] MEDS ORDERED: DIPRIVAN VIAL 20 ML ONE (11:17)
[2017-05-21] MEDS ORDERED: KETALAR ONE (11:18)
[2017-05-21 12:06] VITALS: BP 131/62
== END 2017-05-21 12:06 | disposition home or self-care (01) ==
LOC: SURG1 09:30
PROVIDERS: ATTEND Internal Medicine
PROC: 0DJD8ZZ Inspection of Lower Intestinal Tract, Via Natural or Artificial Opening Endoscopic (ICD-10-PCS; principal; 2017-05-21 09:00)
DX: K62.5 Hemorrhage of anus and rectum (principal); K64.0 First degree hemorrhoids; K57.30 Diverticulosis of large intestine without perforation or abscess without bleeding
CPT/HCPCS: 99100; A4217; J3490; J7120

== ENCOUNTER 2020-09-16 15:40 | Inpatient (IN) ==
[2020-09-16 16:13] VITALS: BMI 66.9
[2020-09-16] MEDS ORDERED: CARDIZEM INJ 50 MG VIAL ONE (16:26)
[2020-09-16] MEDS ORDERED: CARDIZEM INJ 50 MG VIAL IVP ONE ×2 (16:28→16:30)
--- NOTE | 2020-09-16 16:34 | DR.GENAD ---
HPI Time Seen Time Seen by Provider: 09/16/20 16:27 PCP Primary Care Physician: Jorge HPI Comment HPI Comment: PATIENT IS 75YR OLD FEMALE IS IN ER WITH CHEST PAIN, SOB AND RAPID HEART RATE FOR 3 YEARS. NO COUGH OR CONGESTION. DENIES FEVER. SYMPTOMS ASSOCIATED WITH WEAKNESS AND FATIGUE. Complaint/Symptoms Chief Complaint Doctors Comments: RAPID HEART RATE, SOB AND CHEST PAIN TIMES 3DAYS. Chief Complaint:: Pt c/o palpitations since Wednesday. She also c/o "discomfort in chest" and increased shortness of breath since Wednesday. COVID-19 Coronavirus risk:travel/contact w/high risk person: No Has patient experienced Coronavirus symptoms: No Nurses notes reviewed Nurses Notes Review: Yes Source History Provided: Patient Mode of Arrival Mode of Arrival: Stretcher Timing Onset of Chief Complaint: 09/13/20 Came on: Suddenly Duration Duration: Intermittent Duration: Days Location Location: CHEST. Severity Severity: Moderate Modifying Factors Worsens:: EXACERTION Improves:: REST. Associated Signs and Symptoms Associated Signs and Symptoms: WEAKNESS. Other History Other History: HTN, DM, COPD. PMH PMH Past Medical History: Yes Past Medical History: COPD, Coronary Artery Disease, Diabetes, GERD, Hypertension and Hypothyroidism Past Surgical History: Yes Surgical History: Hysterectomy and Ortho Surgery Family History History of Family Medical Conditions: Yes Family Medical History: Diabetes Mellitus and Hypertension Social History Does patient currently use any type of tobacco product: Yes Have you used tobacco products in the last 12 months: Yes Type of Tobacco Use: Cigarettes Does any household member use tobacco: Yes Alcohol Use: None Do you use any recreational Drugs:: No Lives With: Family Lives Where: Home Travel Risk Coronavirus risk:travel/contact w/high risk person: No Has patient experienced Coronavirus symptoms: No Infectious screening In the last 2 months have you had wt loss of >10#?: NO Have you had fever, night sweats or hemotysis?: No Have you traveled outside the country in the last 6 months?: No Isolation: Standard ROS Review of Systems Constitutional: See HPI, Weakness and Fatigue; negative Fever Eyes: No Symptoms Reported and See HPI ENTM: No Symptoms Reported and See HPI; negative Nose Discharge and Nose Congestion Respiratoy: Short of Breath; negative Moist Cough and Wheezing Cardiovascular: No Symptoms Reported, See HPI, Chest Pain and Palpitations; negative Skin Mottling Gastrointestinal/Abdominal: No Symptoms Reported and See HPI; negative Abdominal Pain, Diarrhea and Vomiting Genitourinary: No Symptoms Reported and See HPI Neurological: See HPI and Weakness; negative Headache and Dizziness Musculoskeletal: No Symptoms Reported and See HPI; negative Back Pain and Muscle Pain Integumentary: No Symptoms Reported Hematologic/Lymphatic: No Symptoms Reported; negative Easy Bruising and Swollen Glands Endocrine: No Symptoms Reported; negative Increased Thirst and Increased Urine Psychiatric: No Symptoms Reported and See HPI All Other Systems: Reviewed and Negative PE Vital Signs Vitals: Temperature 98.0 F Pulse Rate 95 Respiratory Rate 20 Blood Pressure [Right Arm] 112/56 Blood Pressure [Left Arm] 130/60 Blood Pressure 125/56 O2 Sat by Pulse Oximetry 94 General Limitations: No Limitations General Appearance: Alert and In No Apparent Distress Head Head Exam: Normal Inspection and Atraumatic Eyes Eye exam: Normal Appearance and PERRL; negative Scleral Icterus and Conjunctival Injection ENT ENT Exam: Normal Exam, Normal Oropharynx, Normal External Ear Exam and TM's Normal Bilaterally External Ear Exam: Normal External Inspection; negative Mastoid Tenderness TM/Canal Exam: Bilateral: Normal Nose Exam: Normal Nose Exam; negative Sinus Tenderness Mouth Exam: Normal Inspection; negative Lip Swelling and Tongue Swelling Throat Exam: Normal Inspection; negative Tonsillar Erythema, Tonsillomegaly and Muffled Voice Neck Neck Exam: Normal Inspection and Trachea Midline; negative Tenderness and Lymphadenopathy Chest Chest Inspection: Normal Inspection and Symmetric Chest Wall Rise; negative Tenderness Respiratory Respiratory Exam: Normal Lung Sounds Bilat; negative Accessory Muscle Use, Chest Wall Tenderness and Respiratory Distress Respiratory Exam: Bilateral: Rhonchi and Lower: Rhonchi Cardiovascular Cardiovascular Exam: Regular Rate, Normal Rhythm and Normal Heart Sounds; negative Systolic Murmur and Diastolic Murmur Abdominal Exam Abdominal Exam: Normal Inspection, Normal Bowel Sounds and Soft; negative Tenderness Extremities Extremities Exam: Normal Inspection and Normal Capillary Refill; negative Tenderness and Calf Tenderness Back Back Exam: Normal Inspection; negative (R) CVA Tenderness and (L) CVA Tenderness Neurologic Neurological Exam: Alert and Oriented X3; negative Motor Sensory Deficit Psychiatric Psychiatric Exam: Normal Affect and Normal Mood Skin Skin Exam: Warm, Dry, Intact and Normal Color MDM Additional Information Additional Information Obtained From: Old Records Differential Diagnosis Differential Diagnosis: NH, PNEUMONIA, A FIB, PALPITATION, CAD, UTI THYRIOD DISEASE. COURSE Treatment Treatment: SEE ORDERS. Consultation Consultation Comments: DISCUSSED PATIENT WITH DR. CHERY. HE WILL ADMIT PATIENT. Education/Counseling Education/Counseling: Patient Educated On: Diagnosis ROR Labs Reviewed Laboratory Results Reviewed?: Yes Result Diagrams: 09/20/20 09:57 09/20/20 09:57 Laboratory: WBC 8.8 X10^3/uL (3.6-10.0) 09/16/20 16:46 RBC 4.00 X10^6/uL (3.5-5.4) 09/16/20 16:46 Hgb 12.4 g/dL (12.0-16.0) 09/16/20 16:46 Hct 37.6 % (36.0-47.0) 09/16/20 16:46 MCV 94.1 fL (80.0-100.0) 09/16/20 16:46 MCH 31.0 pg (27.0-34.0) 09/16/20 16:46 MCHC 33.0 g/dL (33.0-35.0) 09/16/20 16:46 RDW 16.9 % (11.6-16.5) H 09/16/20 16:46 Plt Count 235 X10^3/uL (150.0-450.0) 09/16/20 16:46 MPV 8.6 fL (7.4-11.0) 09/16/20 16:46 Neut % (Auto) 75.2 % (42.0-75.0) H 09/16/20 16:46 Lymph % (Auto) 14.5 % (21.0-51.0) L 09/16/20 16:46 [place] % (Auto) 8.9 % (0.0-13.0) 09/16/20 16:46 Eos % (Auto) 0.7 % (0.9-2.9) L 09/16/20 16:46 Baso % (Auto) 0.7 % (0.2-1.0) 09/16/20 16:46 Neut # (Auto) 6.6 x10^3/uL (2.2-4.8) H 09/16/20 16:46 Lymph # (Auto) 1.3 X10^3/uL (1.3-2.9) 09/16/20 16:46 [place] # (Auto) 0.8 x10^3/uL (0.3-0.8) 09/16/20 16:46 Eos # (Auto) 0.1 x10^3/uL (0.0-0.2) 09/16/20 16:46 Baso # (Auto) 0.1 X10^3/uL (0.0-0.1) 09/16/20 16:46 Absolute Nucleated RBC 0.1 /100WBC 09/16/20 16:46 Sodium 144 mmol/L (136-145) 09/16/20 16:46 Corrected Sodium 145 mmol/L (136-145) 09/16/20 16:46 Potassium 3.5 mmol/L (3.5-5.1) 09/16/20 16:46 Chloride 107 mmol/L (98-107) 09/16/20 16:46 Carbon Dioxide 26.6 mmol/L (21-32) 09/16/20 16:46 BUN 13 mg/dL (7-18) 09/16/20 16:46 Creatinine 1.02 mg/dL (0.55-1.02) 09/16/20 16:46 Est GFR (MDRD) Af Amer > 60 (>60) 09/16/20 16:46 Est GFR (MDRD) Non-Af 56 (>60) L 09/16/20 16:46 Glucose 123 mg/dL (65-99) H 09/16/20 16:46 Calcium 8.5 mg/dL (8.5-10.1) 09/16/20 16:46 Corrected Calcium TNP 09/16/20 16:46 Total Bilirubin 0.30 mg/dL (0.2-1.0) 09/16/20 16:46 AST 12 Units/L (15-37) L 09/16/20 16:46 ALT 22 Units/L (12-78) 09/16/20 16:46 Alkaline Phosphatase 67 Units/L (46-116) 09/16/20 16:46 Creatine Kinase 82 Units/L (26-192) 09/16/20 16:46 CK-MB (CK-2) 1.4 ng/mL (0-4.0) 09/16/20 16:46 CK/CKMB % Calc 1.7 % (<4) 09/16/20 16:46 Troponin I < 0.02 ng/mL (0-1.5) 09/16/20 16:46 Total Protein 7.7 g/dL (6.4-8.2) 09/16/20 16:46 Albumin 3.4 g/dL (3.4-5.0) 09/16/20 16:46 Globulin 4.3 g/dL (2.5-4.5) 09/16/20 16:46 Albumin/Globulin Ratio 0.8 Ratio (1.1-2.1) L 09/16/20 16:46 Specimen Type Catherized urine 09/16/20 19:43 Urine Color Yellow (YELLOW) 09/16/20 19:43 Urine Appearance Clear (CLEAR) 09/16/20 19:43 Urine pH 6.0 (5.0 - 8.0) 09/16/20 19:43 Ur Specific [place] 1.015 (1.000-1.030) 09/16/20 19:43 Urine Protein 2+ (NEGATIVE) 09/16/20 19:43 Urine Glucose (UA) Negative (NEGATIVE) 09/16/20 19:43 Urine Ketones Negative (NEGATIVE) 09/16/20 19:43 Urine Occult Blood 1+ (NEGATIVE) 09/16/20 19:43 Urine Nitrite Negative (NEGATIVE) 09/16/20 19:43 Urine Bilirubin Negative (NEGATIVE) 09/16/20 19:43 Urine Urobilinogen Normal (NORMAL) 09/16/20 19:43 Ur Leukocyte Esterase Negative (NEGATIVE) 09/16/20 19:43 Urine RBC None seen /HPF (0-3) 09/16/20 19:43 Urine WBC None seen /HPF (0-5) 09/16/20 19:43 Ur Squamous Epith Cells Negative /HPF (NEGATIVE) 09/16/20 19:43 Urine Bacteria Negative /HPF (NEGATIVE) 09/16/20 19:43 Ur Culture Indicated? No/not indicated 09/16/20 19:43 SARS CoV-2 RNA Rapid SHANTAL Negative (NEGATIVE) 09/16/20 16:45 EKG Rate: 159 Jayess: Normal Rhythm: Afib Block: None Hypertrophy: None ST: Nonsp Opioid Opioid Risk Tool Age (Christ box if 16-45): No History of Preadolescent Sexual Abuse: No Total: 0 Total Score Risk Category: Low Risk Copyright: Irby LR predicting aberrant behaviors Diagnosis Discharge Problem: Atrial fibrillation with RVR, Weakness, SOB (shortness of breath) Chest pain Qualifiers: Chest pain type: precordial pain Qualified Code(s): R07.2 - Precordial pain Instructions Instructions: Diabetes Mellitus and Sick Day Management Steps to Quit Smoking, Owrq-il-Zhuh Chronic Obstructive Pulmonary Disease, Qxzi-iv-Adrd Hypertension, Frxw-qc-Ijha Heart Failure, [id number] Atrial Fibrillation, [id number] Forms: Excuse From Work or School Precautions for COVID19 Patient Portal Social Distancing
[2020-09-16] MEDS ORDERED: CARDIZEM INJ 125 MG VIAL ONE (16:35)
[2020-09-16] MEDS ORDERED: NS 100 ML IV 100 ML IV ONE (16:35)
[2020-09-16] MEDS: CARDIZEM INJ 125 MG VIAL 125 MG in NS 100 ML IV 100 ML IV PRN (16:49)
[2020-09-16 16:58] LABS: BASOPHILS # (AUTO) 0.1 X10^3/uL (0.0-0.1); BASOPHILS % (AUTO) 0.7 % (0.2-1.0); EOSINOPHILS # (AUTO) 0.1 x10^3/uL (0.0-0.2); EOSINOPHILS % (AUTO) 0.7 % (0.9-2.9); HEMATOCRIT 37.6 % (36.0-47.0); HEMOGLOBIN 12.4 g/dL (12.0-16.0); LYMPHOCYTES # (AUTO) 1.3 X10^3/uL (1.3-2.9); LYMPHOCYTES % (AUTO) 14.5 % (21.0-51.0); MEAN CORPUSCULAR VOLUME 94.1 fL (80.0-100.0); MEAN PLATELET VOLUME 8.6 fL (7.4-11.0); MONOCYTES # (AUTO) 0.8 x10^3/uL (0.3-0.8); MONOCYTES % (AUTO) 8.9 % (0.0-13.0); NEUTROPHILS # (AUTO) 6.6 x10^3/uL (2.2-4.8); NEUTROPHILS % (AUTO) 75.2 % (42.0-75.0); PLATELET COUNT 235 X10^3/uL (150.0-450.0); RED CELL DISTRIBUTION WIDTH 16.9 % (11.6-16.5); WHITE BLOOD COUNT 8.8 X10^3/uL (3.6-10.0)
[2020-09-16 17:11] LABS: BLOOD UREA NITROGEN 13 mg/dL (7-18); CALCIUM 8.5 mg/dL (8.5-10.1); CARBON DIOXIDE 26.6 mmol/L (21-32); CHLORIDE 107 mmol/L (98-107); COR NA(FOR HYPERGLY) 145 mmol/L (136-145); CREATININE 1.02 mg/dL (0.55-1.02); SODIUM 144 mmol/L (136-145); TROPONIN I < 0.02 ng/mL (0-1.5); eGFR NON BLACK RACES 56 (>60)
[2020-09-16 17:17] LABS: ALANINE AMINOTRANSFERASE 22 Units/L (12-78); ALBUMIN 3.4 g/dL (3.4-5.0); ALKALINE PHOSPHATASE 67 Units/L (46-116); ASPARTATE AMINO TRANSFERASE 12 Units/L (15-37); CKMB % 1.7 % (<4); CREATINE KINASE 82 Units/L (26-192); CREATINE KINASE MB 1.4 ng/mL (0-4.0); TOTAL PROTEIN 7.7 g/dL (6.4-8.2)
[2020-09-16 20:10] LABS: BILIRUBIN,URINE NEGATIVE (NEGATIVE); BLOOD/HEMOGLOBIN,URINE 1+ (NEGATIVE); GLUCOSE, URINE NEGATIVE (NEGATIVE); KETONES,URINE NEGATIVE (NEGATIVE); LEUKOCYTE ESTERASE ,URINE NEGATIVE (NEGATIVE); NITRITES,URINE NEGATIVE (NEGATIVE); PROTEIN,URINE 2+ (NEGATIVE); UROBILINOGEN,URINE NORMAL (NORMAL)
[2020-09-16 20:28] LABS: APPEARANCE,URINE CLEAR (CLEAR); COLOR,URINE YELLOW (YELLOW); RBC,URINE NONE SEEN /HPF (0-3)
[2020-09-16 20:29] LABS: BACTERIA,URINE NEGATIVE /HPF (NEGATIVE); SQUAMOUS EPITHELIAL CELL,UR NEGATIVE /HPF (NEGATIVE)
[2020-09-17] MEDS ORDERED: NORCO 5/325 MG TAB ONE (01:20)
[2020-09-17] MEDS: NORCO 5/325 MG TAB PO PRN ×3 (01:37→20:45)
[2020-09-17] MEDS: CARDIZEM INJ 125 MG VIAL 125 MG in NS 100 ML IV 100 ML IV PRN ×3 (02:33→18:27)
[2020-09-17 08:37] LABS: CKMB % 1.1 % (<4); CREATINE KINASE 116 Units/L (26-192); CREATINE KINASE MB 1.3 ng/mL (0-4.0); TROPONIN I < 0.02 ng/mL (0-1.5)
[2020-09-17] MEDS ORDERED: ZESTRIL TAB 20 MG ONE ×2 (08:40→20:31)
[2020-09-17] MEDS ORDERED: GLUCOPHAGE ONE ×2 (08:41→20:31)
[2020-09-17] MEDS: LIPITOR TAB 40 MG PO SCH (09:05)
[2020-09-17] MEDS: LASIX PO SCH ×3 (09:05→21:01)
[2020-09-17] MEDS: TAB-A-VITE PO SCH (09:05)
[2020-09-17] MEDS: SYNTHROID 25 mcg TAB PO SCH (09:05)
[2020-09-17] MEDS: CARDIZEM TAB 30 MG PLAIN PO SCH ×3 (09:05→21:01)
[2020-09-17] MEDS: ZESTRIL TAB 20 MG PO SCH ×2 (09:06→20:43)
[2020-09-17] MEDS: GLUCOPHAGE PO SCH ×2 (09:06→20:41)
[2020-09-17] MEDS: LOPRESSOR TAB 50 MG PO SCH ×2 (09:06→20:44)
[2020-09-17] MEDS: ELIQUIS PO SCH ×2 (09:06→20:43)
--- NOTE | 2020-09-17 11:20 | VAS ---
HISTORYBILAT LE SWELLING/PAINSTUDYDuplex bilateral lower extremity venous ultrasoundCOMPARISONNoneTECHNIQUEMultiple araujo scale and color flow Doppler images of the deep venous system were obtained of the right and left lower extremity.FINDINGSThe deep venous system of the ri ght and left lower extremities were evaluated from the level of the common femoral vein through the popliteal vein. Normal color flow and augmentation can be observed. In addition, normal compression is seen throughout the deep venous system.IMPRESSIONNegative for DVT.Electronically signed by: Chaitanya Hernandez (Sep 17, 2020 11:18:26)
--- NOTE | 2020-09-17 12:09 | RAD ---
HISTORYSOB, A-FIBSTUDYCHEST x-ray, 1 VIEWCOMPARISONNoneFINDINGSHeart is likely normal in size on this AP radiograph. Calcification is seen of the aortic arch. Pacemaker leads are directed towards the right atrial appendage and right ventricular apex. No pneumothorax, focal infiltrate, or pleural effusion is seen. Study is slightly limited due to patient size and portable technique.IMPRESSIONNo acute cardiopulmonary abnormality is seen.Electronically signed by: Bryan Hernandez (Sep 17, 2020 12:07:05)
[2020-09-17 13:37] LABS: ABG ALLEN TEST POS; ABG BASE EXCESS 2.6 mmol/L (-2.0-2.0); ABG HCO3 27.9 mmol/L (22-26)
[2020-09-17 14:39] LABS: CKMB % 1.3 % (<4); CREATINE KINASE 144 Units/L (26-192); CREATINE KINASE MB 1.9 ng/mL (0-4.0); TROPONIN I < 0.02 ng/mL (0-1.5)
[2020-09-17] MEDS ORDERED: K-DUR TAB 20 MEQ PO SCH (15:00)
[2020-09-17] MEDS: K-DUR TAB 20 MEQ PO SCH (16:47)
--- NOTE | 2020-09-17 17:05 | DR.H&P ---
H&P - History & Physical for Day of: H&P Date: 09/16/20 - Chief Complaint Chief Complaint: HEART FLUTTERING "I DONT THINK MY PACEMAKER IS WORKING" - History of Present Illness History of Present Illness: PT IS 75 WF ER ADMISSION WITH CO HEART PALPITATIONS SINCE LAST WEDNESDAY NIGHT. PT REPORTS SHE THOUGHT HER PACEMAKER WAS NOT WORKING ANY MORE. PT HAS PMH OF AFIB, ON ELIQUIS AND BB. PT DENIES ANY CHEST PAIN. PT HAS HX OF COPD, SO CO SOB ALL THE TIME. PT HAS PMH OF COPD, RESP FAILURE, [place], AFIB, HTN, OA, GERD. PT ADMITTED FOR TREATMENT OF ACUTE ILLNESS - Past Medical History Past Medical History: Coronary Artery Disease, Hypertension, Diabetes, Hypothyroidism, COPD, GERD - Past Surgical History Surgical History: Angioplasty/Stents, Hysterectomy - Family History Family Medical History: Diabetes Mellitus, Cancer, [place], Coronary Artery Disease, Hypertension - Social History Does patient currently use any type of tobacco product: Yes Have you used tobacco products in the last 12 months: Yes Type of Tobacco Use: Cigarettes How many years tobacco product used: 40 Does any household member use tobacco: Yes Alcohol Use: None Drug Use: None - Medications Home Medications: No Known Drug Allergies Allergy (Verified 03/25/17 18:06) CONTINUE taking the following medications levothyroxine 25 mcg PO DAILY 09/16/20 [History] - Review of Systems Constitutional: Weakness Eyes: No Symptoms Reported ENT: No Symptoms Reported Respiratory: Shortness of Breath, SOB with Excertion, Wheezing Cardiovascular: Palpitations, Edema Gastrointestinal: Nausea Genitourinary: No Symptoms Reported Musculoskeletal: Shoulder Pain, Back Pain Skin: No Symptoms Reported Neurological: Weakness - Physical Exam Vital Signs: Temperature 98.3 F Pulse Rate [Apical] 80 Pulse Rate 96 Respiratory Rate 16 Blood Pressure [Right Arm] 112/56 Blood Pressure [Left Arm] 123/67 Blood Pressure 140/70 O2 Sat by Pulse Oximetry 95 Oriented: Normal Eyes: Normal Ear: Normal Nose: Normal Throat: Dry Respiratory: Wheezes Throughout Cardiovascular: Tachycardia, Irregular, Edema : Normal Auscultation: Bowel Sounds: Normal Palpation: Normal Tenderness: Normal Skin: Normal Musculoskeletal: Right, Left, Shoulder, Back:Lumbar, Tender Psychiatric: Anxiety Affect: Anxious Speech Pattern: Clear, Appropriate - Assessment/Plan (1) Atrial fibrillation with RVR Status: Acute Plan: ADMIT, ICU, CARDIZEM IP. CONTINUE ELIQUIS, CXR ON ADMISSION. BP CONTROL, SERIAL CE AND EKG. VERIFY HOME MEDICATION. STRICT I&OS (2) Essential hypertension Status: Active (3) Gastroesophageal reflux disease Status: Active (4) Coronary Artery Disease Status: Active (5) Diabetes mellitus type 2 Status: Active (6) COPD (chronic obstructive pulmonary disease) Status: Acute - Allergies Allergies/Adverse Reactions: Allergies Allergy/AdvReac Type Severity Reaction Status Date / Time No Known Drug Allergies Allergy Verified 03/25/17 18:06
[2020-09-17] MEDS ORDERED: NEURONTIN CAP 300 MG PO SCH (21:00)
[2020-09-18] MEDS: CARDIZEM INJ 125 MG VIAL 125 MG in NS 100 ML IV 100 ML IV PRN ×2 (03:48→13:47)
[2020-09-18] MEDS: NORCO 5/325 MG TAB PO PRN (03:57)
--- NOTE | 2020-09-18 04:31 | RAD ---
PROCEDURE: Chest X-ray 1 View .HISTORY: Congestive heart failure.TECHNIQUE: AP view .COMPARISON: 09/17/2020.TECHNICAL QUALITY: Satisfactory .FINDINGS:Heart size upper limits of normal with pacemaker on the left.Mediastinum and hilar regions are unremarkable.Mild prominence of the central vascularity compared to previous study.No pulmonary consolidation, pleural fluid, pneumothorax, or masses.IMPRESSION:Some mild central vascular congestion compared to previous study with no other acute change.Electronically signed by: Miller Rangel (Sep 18, 2020 04:29:37)
[2020-09-18 04:32] LABS: BASOPHILS # (AUTO) 0.1 X10^3/uL (0.0-0.1); EOSINOPHILS # (AUTO) 0.2 x10^3/uL (0.0-0.2); HEMOGLOBIN 11.1 g/dL (12.0-16.0); LYMPHOCYTES # (AUTO) 1.4 X10^3/uL (1.3-2.9); LYMPHOCYTES % (AUTO) 26.8 % (21.0-51.0); MEAN CORPUSCULAR HGB CONC 31.8 g/dL (33.0-35.0); MEAN CORPUSCULAR VOLUME 94.4 fL (80.0-100.0); MEAN PLATELET VOLUME 8.6 fL (7.4-11.0); MONOCYTES # (AUTO) 0.5 x10^3/uL (0.3-0.8); MONOCYTES % (AUTO) 10.2 % (0.0-13.0); NEUTROPHILS # (AUTO) 3.1 x10^3/uL (2.2-4.8); PLATELET COUNT 226 X10^3/uL (150.0-450.0); RED BLOOD COUNT 3.71 X10^6/uL (3.5-5.4); RED CELL DISTRIBUTION WIDTH 17.3 % (11.6-16.5); WHITE BLOOD COUNT 5.2 X10^3/uL (3.6-10.0)
[2020-09-18 04:41] LABS: ALANINE AMINOTRANSFERASE 21 Units/L (12-78); ALKALINE PHOSPHATASE 59 Units/L (46-116); ASPARTATE AMINO TRANSFERASE 14 Units/L (15-37); BLOOD UREA NITROGEN 10 mg/dL (7-18); CARBON DIOXIDE 28.3 mmol/L (21-32); CHLORIDE 105 mmol/L (98-107); COR CA(FOR HYPOALB) 8.8 mg/dL (8.5-10.1); COR NA(FOR HYPERGLY) 142 mmol/L (136-145); CREATININE 0.89 mg/dL (0.55-1.02); MAGNESIUM 1.9 mg/dL (1.7-2.9); SODIUM 141 mmol/L (136-145); TOTAL PROTEIN 6.8 g/dL (6.4-8.2); eGFR NON BLACK RACES > 60 (>60)
[2020-09-18] MEDS: LASIX PO SCH ×2 (05:57→13:47)
[2020-09-18] MEDS: CARDIZEM TAB 30 MG PLAIN PO SCH ×3 (05:57→20:48)
[2020-09-18] MEDS ORDERED: KLOR-CON PO PRN (08:05)
[2020-09-18] MEDS ORDERED: MICRO K EXTEN CAP 10 MEQ PO PRN (08:05)
[2020-09-18] MEDS ORDERED: POTASSIUM CHL 40 MEQ/NS 0.45% 500 ML IV PRN (08:05)
[2020-09-18] MEDS ORDERED: K-RIDER 10 MEQ/NS 100 ML 10 MEQ/100 ML BAG IV PRN (08:05)
[2020-09-18] MEDS ORDERED: POTASSIUM CHL 60 MEQ/NS 0.45% 500 ML IV PRN (08:05)
[2020-09-18] MEDS ORDERED: POTASSIUM CHLORIDE LIQ 20 MEQ UDC PO PRN (08:05)
[2020-09-18] MEDS ORDERED: ZESTRIL TAB 20 MG ONE ×2 (08:27→20:24)
[2020-09-18] MEDS ORDERED: GLUCOPHAGE ONE ×2 (08:27→20:24)
[2020-09-18] MEDS: GLUCOPHAGE PO SCH ×2 (08:31→20:48)
[2020-09-18] MEDS: ELIQUIS PO SCH ×2 (08:31→20:48)
[2020-09-18] MEDS: LIPITOR TAB 40 MG PO SCH (08:32)
[2020-09-18] MEDS: SYNTHROID 25 mcg TAB PO SCH (08:32)
[2020-09-18] MEDS: LOPRESSOR TAB 50 MG PO SCH ×2 (08:32→20:48)
[2020-09-18] MEDS: ZESTRIL TAB 20 MG PO SCH ×2 (08:33→20:48)
[2020-09-18] MEDS: TAB-A-VITE PO SCH (08:33)
[2020-09-18] MEDS: K-DUR TAB 20 MEQ PO SCH (08:33)
[2020-09-18] MEDS: DUONEB 0.5 MG/3 MG (3 mL) NEB SCH ×3 (09:51→16:30)
[2020-09-18] MEDS: K-DUR TAB 20 MEQ PO PRN (13:49)
[2020-09-18] MEDS ORDERED: REQUIP PO PRN (17:51)
[2020-09-18] MEDS: NORCO 7.5/325 MG TAB PO PRN (19:04)
[2020-09-18] MEDS ORDERED: NS 100 ML IV 100 ML IV ONE (21:44)
[2020-09-18] MEDS: MAGNESIUM SULFATE 1 GRAM/100 mL PREMIX 1 GM/100 ML BAG IV PRN ×2 (21:58→22:55)
[2020-09-19] MEDS: DUONEB 0.5 MG/3 MG (3 mL) NEB SCH ×4 (00:01→18:05)
[2020-09-19] MEDS: NORCO 7.5/325 MG TAB PO PRN ×4 (01:35→21:05)
--- NOTE | 2020-09-19 04:34 | RAD ---
PROCEDURE: Chest X-ray 1 View .HISTORY: Congestive heart failure.TECHNIQUE: AP view.COMPARISON: 09/18/2020.TECHNICAL QUALITY: Satisfactory .FINDINGS:Unchanged heart size upper limits of normal with pacemaker on the left.Mediastinum and hilar regions show no masses or lymphadenopathy .Normal central vascularity .No pulmonary consolidation, masses, pleural fluid, or pneumothorax .No acute bony abnormality .IMPRESSION:Unchanged start size upper limits of normal with no evidence of congestive failure on today study.Electronically signed by: Miller Rangel (Sep 19, 2020 04:32:28)
[2020-09-19 04:44] LABS: BASOPHILS % (AUTO) 0.5 % (0.2-1.0); EOSINOPHILS # (AUTO) 0.2 x10^3/uL (0.0-0.2); EOSINOPHILS % (AUTO) 2.7 % (0.9-2.9); HEMATOCRIT 34.4 % (36.0-47.0); HEMOGLOBIN 11.1 g/dL (12.0-16.0); LYMPHOCYTES # (AUTO) 1.6 X10^3/uL (1.3-2.9); LYMPHOCYTES % (AUTO) 27.1 % (21.0-51.0); MEAN CORPUSCULAR HEMOGLOBIN 30.5 pg (27.0-34.0); MEAN CORPUSCULAR HGB CONC 32.1 g/dL (33.0-35.0); MEAN CORPUSCULAR VOLUME 94.8 fL (80.0-100.0); MEAN PLATELET VOLUME 8.7 fL (7.4-11.0); MONOCYTES # (AUTO) 0.7 x10^3/uL (0.3-0.8); MONOCYTES % (AUTO) 11.4 % (0.0-13.0); NEUTROPHILS # (AUTO) 3.5 x10^3/uL (2.2-4.8); NEUTROPHILS % (AUTO) 58.3 % (42.0-75.0); PLATELET COUNT 232 X10^3/uL (150.0-450.0); RED BLOOD COUNT 3.63 X10^6/uL (3.5-5.4); RED CELL DISTRIBUTION WIDTH 17.1 % (11.6-16.5); WHITE BLOOD COUNT 6.1 X10^3/uL (3.6-10.0)
[2020-09-19 04:54] LABS: ALANINE AMINOTRANSFERASE 22 Units/L (12-78); ALKALINE PHOSPHATASE 63 Units/L (46-116); ASPARTATE AMINO TRANSFERASE 17 Units/L (15-37); BLOOD UREA NITROGEN 12 mg/dL (7-18); CALCIUM 8.2 mg/dL (8.5-10.1); CARBON DIOXIDE 28.2 mmol/L (21-32); CHLORIDE 105 mmol/L (98-107); COR NA(FOR HYPERGLY) 140 mmol/L (136-145); CREATININE 0.91 mg/dL (0.55-1.02); MAGNESIUM 2.1 mg/dL (1.7-2.9); SODIUM 140 mmol/L (136-145); TOTAL PROTEIN 6.9 g/dL (6.4-8.2); eGFR NON BLACK RACES > 60 (>60)
[2020-09-19] MEDS: CARDIZEM TAB 30 MG PLAIN PO SCH (05:03)
[2020-09-19] MEDS ORDERED: GLUCOPHAGE ONE ×2 (09:16→20:14)
[2020-09-19] MEDS ORDERED: ZESTRIL TAB 20 MG ONE ×2 (09:16→20:13)
[2020-09-19] MEDS: ELIQUIS PO SCH ×2 (09:18→21:05)
[2020-09-19] MEDS: SYNTHROID 25 mcg TAB PO SCH (09:19)
[2020-09-19] MEDS: K-DUR TAB 20 MEQ PO SCH (09:19)
[2020-09-19] MEDS: GLUCOPHAGE PO SCH ×2 (09:19→21:05)
[2020-09-19] MEDS: LIPITOR TAB 40 MG PO SCH (09:19)
[2020-09-19] MEDS: ZESTRIL TAB 20 MG PO SCH ×2 (09:20→21:05)
[2020-09-19] MEDS: LASIX IVP SCH ×2 (09:20→17:06)
[2020-09-19] MEDS: TAB-A-VITE PO SCH (09:20)
[2020-09-19] MEDS: LOPRESSOR TAB 50 MG PO SCH ×2 (09:20→21:05)
[2020-09-19] MEDS: CARDIZEM ER 60 MG 12-HR PO SCH ×2 (09:23→21:05)
[2020-09-19] MEDS: K-DUR TAB 20 MEQ PO PRN (21:05)
[2020-09-20] MEDS: DUONEB 0.5 MG/3 MG (3 mL) NEB SCH ×3 (00:30→13:55)
[2020-09-20] MEDS ORDERED: ZESTRIL TAB 20 MG ONE (08:19)
[2020-09-20] MEDS ORDERED: GLUCOPHAGE ONE (08:20)
[2020-09-20] MEDS: TAB-A-VITE PO SCH (08:22)
[2020-09-20] MEDS: SYNTHROID 25 mcg TAB PO SCH (08:22)
[2020-09-20] MEDS: CARDIZEM ER 60 MG 12-HR PO SCH (08:22)
[2020-09-20] MEDS: ZESTRIL TAB 20 MG PO SCH (08:23)
[2020-09-20] MEDS: GLUCOPHAGE PO SCH (08:23)
[2020-09-20] MEDS: K-DUR TAB 20 MEQ PO SCH (08:24)
[2020-09-20] MEDS: ELIQUIS PO SCH (08:24)
[2020-09-20] MEDS: LIPITOR TAB 40 MG PO SCH (08:25)
[2020-09-20] MEDS: LOPRESSOR TAB 50 MG PO SCH (08:25)
[2020-09-20] MEDS: LASIX IVP SCH (08:41)
[2020-09-20 08:44] VITALS: BP 137/85
[2020-09-20] MEDS ORDERED: PULMICORT NEB TX 0.5 MG NEB SCH (10:00)
[2020-09-20] MEDS ORDERED: LANOXIN PO SCH (10:00)
[2020-09-20 10:05] LABS: BASOPHILS % (AUTO) 0.6 % (0.2-1.0); EOSINOPHILS # (AUTO) 0.2 x10^3/uL (0.0-0.2); HEMATOCRIT 38.8 % (36.0-47.0); LYMPHOCYTES # (AUTO) 1.4 X10^3/uL (1.3-2.9); LYMPHOCYTES % (AUTO) 24.4 % (21.0-51.0); MEAN CORPUSCULAR HEMOGLOBIN 31.4 pg (27.0-34.0); MEAN CORPUSCULAR HGB CONC 33.4 g/dL (33.0-35.0); MEAN PLATELET VOLUME 8.3 fL (7.4-11.0); MONOCYTES # (AUTO) 0.6 x10^3/uL (0.3-0.8); MONOCYTES % (AUTO) 10.7 % (0.0-13.0); NEUTROPHILS # (AUTO) 3.6 x10^3/uL (2.2-4.8); NEUTROPHILS % (AUTO) 61.3 % (42.0-75.0); PLATELET COUNT 276 X10^3/uL (150.0-450.0); RED BLOOD COUNT 4.13 X10^6/uL (3.5-5.4); RED CELL DISTRIBUTION WIDTH 17.3 % (11.6-16.5); WHITE BLOOD COUNT 5.9 X10^3/uL (3.6-10.0)
[2020-09-20 10:21] LABS: ALANINE AMINOTRANSFERASE 26 Units/L (12-78); ALBUMIN 3.4 g/dL (3.4-5.0); ALKALINE PHOSPHATASE 67 Units/L (46-116); ASPARTATE AMINO TRANSFERASE 19 Units/L (15-37); BLOOD UREA NITROGEN 16 mg/dL (7-18); CALCIUM 9.2 mg/dL (8.5-10.1); CARBON DIOXIDE 30.2 mmol/L (21-32); CHLORIDE 102 mmol/L (98-107); COR NA(FOR HYPERGLY) 142 mmol/L (136-145); CREATININE 1.17 mg/dL (0.55-1.02); SODIUM 142 mmol/L (136-145); TOTAL PROTEIN 8.1 g/dL (6.4-8.2); eGFR NON BLACK RACES 48 (>60)
== END 2020-09-20 14:15 | disposition home health service (06) | DRG 310 ==
LOC: ER 15:41 → ICU 21:50
PROVIDERS: ADMIT Obstetrics & Gynecology Obstetrics; ATTEND Internal Medicine
DX: Z79.01 Long term (current) use of anticoagulants; R06.02 Shortness of breath; I48.91 Unspecified atrial fibrillation; I50.9 Heart failure, unspecified; I11.0 Hypertensive heart disease with heart failure; Z20.822 Contact with and (suspected) exposure to COVID-19; Z95.0 Presence of cardiac pacemaker; M19.90 Unspecified osteoarthritis, unspecified site; E11.65 Type 2 diabetes mellitus with hyperglycemia; E03.8 Other specified hypothyroidism; R53.1 Weakness; E66.01 Morbid (severe) obesity due to excess calories; J44.9 Chronic obstructive pulmonary disease, unspecified; I25.10 Atherosclerotic heart disease of native coronary artery without angina pectoris; K21.9 Gastro-esophageal reflux disease without esophagitis

== ENCOUNTER 2024-07-08 17:05 | Observation (INO) ==
[2024-07-08 17:20] LABS: HEMOGLOBIN 10.1 g/dL (12.0-16.0)
[2024-07-08 17:26] LABS: BASOPHILS % (AUTO) 0.2 % (0.2-1.0); EOSINOPHILS % (AUTO) 0.5 % (0.9-2.9); HEMATOCRIT 30.3 % (36.0-47.0); LYMPHOCYTES # (AUTO) 0.9 X10^3/uL (1.3-2.9); LYMPHOCYTES % (AUTO) 13.2 % (21.0-51.0); MEAN CORPUSCULAR HEMOGLOBIN 35.1 pg (27.0-34.0); MEAN CORPUSCULAR HGB CONC 33.4 g/dL (33.0-35.0); MEAN CORPUSCULAR VOLUME 105.3 fL (80.0-100.0); MONOCYTES # (AUTO) 0.8 x10^3/uL (0.3-0.8); NEUTROPHILS # (AUTO) 4.9 x10^3/uL (2.2-4.8); NEUTROPHILS % (AUTO) 74.1 % (42.0-75.0); PLATELET COUNT 244 X10^3/uL (150.0-450.0); RED BLOOD COUNT 2.87 X10^6/uL (3.5-5.4); RED CELL DISTRIBUTION WIDTH 21.1 % (11.6-16.5); WHITE BLOOD COUNT 6.5 X10^3/uL (3.6-10.0)
[2024-07-08 17:27] LABS: ALANINE AMINOTRANSFERASE 27 Units/L (12-78); ALBUMIN 2.6 g/dL (3.4-5.0); ALKALINE PHOSPHATASE 72 Units/L (46-116); ASPARTATE AMINO TRANSFERASE 18 Units/L (15-37); BLOOD UREA NITROGEN 20 mg/dL (7-18); CALCIUM 8.9 mg/dL (8.5-10.1); CHLORIDE 95 mmol/L (98-107); COR NA(FOR HYPERGLY) 134 mmol/L (136-145); CREATININE 1.16 mg/dL (0.55-1.02); GLUCOSE 184 mg/dL (65-99); POTASSIUM 3.3 mmol/L (3.5-5.1); SODIUM 132 mmol/L (136-145); TOTAL PROTEIN 8.2 g/dL (6.4-8.2); eGFR NON BLACK RACES 48 (>60)
[2024-07-08 17:47] LABS: PLATELET MORPHOLOGY COMMENT NORMAL (NORMAL)
[2024-07-08 17:48] LABS: ANISOCYTOSIS 1+
[2024-07-08 18:26] LABS: IRON 31 ug/dL (50-175); TOTAL IRON BINDING CAPACITY 242 ug/dL (250-450)
[2024-07-08] MEDS: XOPENEX 1.25 MG/3 ML NEBULE NEB SCH (21:21)
[2024-07-08] MEDS: PULMICORT NEB TX 0.5 MG NEB SCH (21:21)
[2024-07-08] MEDS: NS 1,000 ML IV 1,000 ML IV SCH (21:30)
[2024-07-08] MEDS: PROTONIX TAB 40 MG PO ONE (21:36)
[2024-07-09 00:18] LABS: BILIRUBIN,URINE NEGATIVE (NEGATIVE); BLOOD/HEMOGLOBIN,URINE NEGATIVE (NEGATIVE); GLUCOSE, URINE NEGATIVE (NEGATIVE); KETONES,URINE NEGATIVE (NEGATIVE); LEUKOCYTE ESTERASE ,URINE NEGATIVE (NEGATIVE); NITRITES,URINE NEGATIVE (NEGATIVE); PROTEIN,URINE 2+ (NEGATIVE); UROBILINOGEN,URINE NORMAL (NORMAL)
[2024-07-09 00:22] LABS: APPEARANCE,URINE CLEAR (CLEAR); COLOR,URINE YELLOW (YELLOW)
[2024-07-09 00:39] LABS: BACTERIA,URINE TRACE /HPF (NEGATIVE); HYALINE CASTS, URINE RARE /LPF (NEGATIVE); RBC,URINE 0-2 /HPF (0-3); SQUAMOUS EPITHELIAL CELL,UR RARE /HPF (NEGATIVE)
[2024-07-09] MEDS: NORCO 5/325 MG TAB PO PRN (05:14)
[2024-07-09 07:38] LABS: BASOPHILS % (AUTO) 0.2 % (0.2-1.0); EOSINOPHILS % (AUTO) 0.7 % (0.9-2.9); HEMATOCRIT 27.6 % (36.0-47.0); HEMOGLOBIN 9.2 g/dL (12.0-16.0); LYMPHOCYTES # (AUTO) 0.8 X10^3/uL (1.3-2.9); LYMPHOCYTES % (AUTO) 15.8 % (21.0-51.0); MEAN CORPUSCULAR HEMOGLOBIN 35.1 pg (27.0-34.0); MEAN CORPUSCULAR HGB CONC 33.3 g/dL (33.0-35.0); MEAN CORPUSCULAR VOLUME 105.4 fL (80.0-100.0); MEAN PLATELET VOLUME 8.6 fL (7.4-11.0); MONOCYTES # (AUTO) 0.9 x10^3/uL (0.3-0.8); MONOCYTES % (AUTO) 16.3 % (0.0-13.0); NEUTROPHILS # (AUTO) 3.6 x10^3/uL (2.2-4.8); PLATELET COUNT 193 X10^3/uL (150.0-450.0); RED BLOOD COUNT 2.62 X10^6/uL (3.5-5.4); RED CELL DISTRIBUTION WIDTH 20.8 % (11.6-16.5); WHITE BLOOD COUNT 5.3 X10^3/uL (3.6-10.0)
[2024-07-09] MEDS ORDERED: NovoLIN R (or HumuLIN R) SUBCUT PRN (07:54)
[2024-07-09 07:56] LABS: ALANINE AMINOTRANSFERASE 22 Units/L (12-78); ALBUMIN 2.4 g/dL (3.4-5.0); ALKALINE PHOSPHATASE 60 Units/L (46-116); ASPARTATE AMINO TRANSFERASE 17 Units/L (15-37); BLOOD UREA NITROGEN 19 mg/dL (7-18); CHLORIDE 98 mmol/L (98-107); COR CA(FOR HYPOALB) 10.3 mg/dL (8.5-10.1); CREATININE 0.93 mg/dL (0.55-1.02); GLUCOSE 96 mg/dL (65-99); MAGNESIUM 1.8 mg/dL (2.0-2.9); POTASSIUM 3.2 mmol/L (3.5-5.1); SODIUM 134 mmol/L (136-145); TOTAL PROTEIN 7.5 g/dL (6.4-8.2); eGFR NON BLACK RACES > 60 (>60)
[2024-07-09 08:10] LABS: PLATELET MORPHOLOGY COMMENT NORMAL (NORMAL)
[2024-07-09 08:11] LABS: ANISOCYTOSIS 1+
[2024-07-09] MEDS ORDERED: CONSULT PHARMACY - POTASSIUM & MAGNESIUM XX SCH (09:00)
[2024-07-09] MEDS: PROTONIX TAB 40 MG PO SCH (09:03)
[2024-07-09] MEDS: [UNRECOGNIZED DRUG - OTHER] IV ONE (10:25)
[2024-07-09] MEDS: POTASSIUM CHLORIDE IV ONE (10:25)
[2024-07-09] MEDS: MAGNESIUM SULFATE IV ONE (10:25)
[2024-07-09] MEDS: CARDIZEM CD 120 MG 24-HR PO SCH (12:08)
--- NOTE | 2024-07-09 13:11 | DR.H&P ---
H&P History & Physical for Day of: H&P Date: 07/08/24 Chief Complaint Chief Complaint: rectal bleeding History of Present Illness History of Present Illness: PT IS 79 WF, ADMITTED FROM [facility] WITH RECTAL BLEEDING. PT REPORTS SHE HAS HAD CONSTIPATION FOR THE PAST WEEK AND HAD LARGE BM, WITH PAINFUL BM. PT AND NH STAFF REPORTS PT HAD A LARGE AMOUNT OF BRIGHT RED BLOOD IN HER STOOL. PT HAS PMH OF [facility] FOR [facility]. AFIB WITH [employer]TICO[employer]UL[employer] THERAPY, COPD, CHF, DM, HTN AND MORBID OBESITY Past Medical History Past Medical History: COPD, Coronary Artery Disease, Diabetes, GERD, Hypertension and Hypothyroidism Past Surgical History Surgical History: Angioplasty/Stents and Hysterectomy Family History Family Medical History: Diabetes Mellitus, [place], Coronary Artery Disease and Hypertension Social History Does patient currently use any type of tobacco product: No Have you used tobacco products in the last 12 months: No Type of Tobacco Use: None Alcohol Use: None Drug Use: None Medications Home Medications: Home Medications Medication Instructions Recorded Confirmed Type albuterol sulfate 90 mcg/actuation 1 puff inhalation PRN PRN 06/28/24 07/08/24 History aerosol inhaler apixaban 5 mg tablet (Eliquis) 5 mg PO DAILY 06/28/24 07/08/24 History atorvastatin 40 mg tablet 40 mg PO HS 06/28/24 07/08/24 History diclofenac sodium 1 % topical gel 1 ea topical PRN PRN 06/28/24 07/08/24 History diltiazem HCl 120 mg tablet 120 mg PO DAILY 06/28/24 07/08/24 History furosemide 40 mg tablet 40 mg PO TID 06/28/24 07/08/24 History levothyroxine 25 mcg tablet 25 mcg PO DAILY 06/28/24 07/08/24 History (Synthroid) lisinopril 20 mg tablet 20 mg PO BID 06/28/24 07/08/24 History metformin 500 mg tablet 500 mg PO BID 06/28/24 07/08/24 History metoprolol tartrate 50 mg tablet 50 mg PO BID 06/28/24 07/08/24 History multivitamin-ferrous 1 tab PO DAILY 06/28/24 07/08/24 History fumarate-folic acid 18 mg-400 mcg tablet (Centrum Women) potassium chloride 10 mEq 20 meq PO TID 06/28/24 07/08/24 History capsule,extended release docusate sodium 100 mg capsule 100 mg PO QDAY 07/08/24 07/08/24 History (Colace) hydrocodone 5 mg-acetaminophen 325 1 tab PO Q4HR 07/08/24 07/08/24 History mg tablet insulin regular human 100 unit/mL See Rx Instructions .Route .COMPLEX 07/08/24 07/08/24 History injection solution (Novolin R Regular U-100 Insulin) magnesium hydroxide 1,200 mg tablet 2,400 mg PO DAILY 07/08/24 07/08/24 History nicotine 21 mg/24 hr daily 1 patch topical DAILY 07/08/24 07/08/24 History transdermal patch nystatin 100,000 unit/gram topical 1 applic topical QDAY 07/08/24 07/08/24 History powder (Nystop) Allergies Allergies Allergy/AdvReac Type Severity Reaction Status Date / Time No Known Drug Allergies Allergy Verified 06/28/24 10:15 Labs 07/09/24 05:39 07/09/24 05:39 Labs: Laboratory WBC 5.3 X10^3/uL (3.6-10.0) 07/09/24 05:39 RBC 2.62 X10^6/uL (3.5-5.4) L 07/09/24 05:39 Hgb 9.2 g/dL (12.0-16.0) L 07/09/24 05:39 Hct 27.6 % (36.0-47.0) L 07/09/24 05:39 MCV 105.4 fL (80.0-100.0) H 07/09/24 05:39 MCH 35.1 pg (27.0-34.0) H 07/09/24 05:39 MCHC 33.3 g/dL (33.0-35.0) 07/09/24 05:39 RDW 20.8 % (11.6-16.5) H 07/09/24 05:39 Plt Count 193 X10^3/uL (150.0-450.0) 07/09/24 05:39 Plt Count Comment Adequate (ADEQUATE) 07/09/24 05:39 MPV 8.6 fL (7.4-11.0) 07/09/24 05:39 Neut % (Auto) 67.0 % (42.0-75.0) 07/09/24 05:39 Lymph % (Auto) 15.8 % (21.0-51.0) L 07/09/24 05:39 [place] % (Auto) 16.3 % (0.0-13.0) H 07/09/24 05:39 Eos % (Auto) 0.7 % (0.9-2.9) L 07/09/24 05:39 Baso % (Auto) 0.2 % (0.2-1.0) 07/09/24 05:39 Neut # (Auto) 3.6 x10^3/uL (2.2-4.8) 07/09/24 05:39 Lymph # (Auto) 0.8 X10^3/uL (1.3-2.9) L 07/09/24 05:39 [place] # (Auto) 0.9 x10^3/uL (0.3-0.8) H 07/09/24 05:39 Eos # (Auto) 0.0 x10^3/uL (0.0-0.2) 07/09/24 05:39 Baso # (Auto) 0.0 X10^3/uL (0.0-0.1) 07/09/24 05:39 Absolute Nucleated RBC 0.3 /100WBC 07/09/24 05:39 Plt Morphology Comment Normal (NORMAL) 07/09/24 05:39 RBC Morphology Abnormal (NORMAL) A 07/09/24 05:39 Anisocytosis 1+ A 07/09/24 05:39 Macrocytosis 1+ A 07/09/24 05:39 Absolute Retic 0.0604 10^6/uL 07/08/24 16:00 Percent Retic 2.10 % (0.8-2.2) 07/08/24 16:00 Sodium 134 mmol/L (136-145) L 07/09/24 05:39 Corrected Sodium TNP 07/09/24 05:39 Potassium 3.2 mmol/L (3.5-5.1) L 07/09/24 05:39 Chloride 98 mmol/L (98-107) 07/09/24 05:39 Carbon Dioxide 29.0 mmol/L (21-32) 07/09/24 05:39 BUN 19 mg/dL (7-18) H 07/09/24 05:39 Creatinine 0.93 mg/dL (0.55-1.02) 07/09/24 05:39 Est GFR (MDRD) Af Amer > 60 (>60) 07/09/24 05:39 Est GFR (MDRD) Non-Af > 60 (>60) 07/09/24 05:39 Glucose 96 mg/dL (65-99) 07/09/24 05:39 POC Glucose (mg/dL) 109 mg/dL (65-99) H 07/09/24 11:14 Calcium 9.0 mg/dL (8.5-10.1) 07/09/24 05:39 Corrected Calcium 10.3 mg/dL (8.5-10.1) H 07/09/24 05:39 Magnesium 1.8 mg/dL (2.0-2.9) L 07/09/24 05:39 Iron 31 ug/dL (50-175) L 07/08/24 16:00 TIBC 242 ug/dL (250-450) L 07/08/24 16:00 Transferrin 189 mg/dL (202-364) L 07/08/24 16:00 Ferritin 146 ng/mL (8-252) 07/08/24 16:00 Total Bilirubin 0.50 mg/dL (0.2-1.0) 07/09/24 05:39 AST 17 Units/L (15-37) 07/09/24 05:39 ALT 22 Units/L (12-78) 07/09/24 05:39 Alkaline Phosphatase 60 Units/L (46-116) 07/09/24 05:39 Total Protein 7.5 g/dL (6.4-8.2) 07/09/24 05:39 Albumin 2.4 g/dL (3.4-5.0) L 07/09/24 05:39 Globulin 5.1 g/dL (2.5-4.5) H 07/09/24 05:39 Albumin/Globulin Ratio 0.5 Ratio (1.1-2.1) L 07/09/24 05:39 Vitamin B12 823 pg/mL (193-986) 07/08/24 16:00 Folate > 20.0 ng/mL (>8.6) 07/08/24 16:00 Specimen Type Clean catch urine 07/08/24 23:50 Urine Color Yellow (YELLOW) 07/08/24 23:50 Urine Appearance Clear (CLEAR) 07/08/24 23:50 Urine pH 6.0 (5.0 - 8.0) 07/08/24 23:50 Ur Specific [place] 1.020 (1.000-1.030) 07/08/24 23:50 Urine Protein 2+ (NEGATIVE) 07/08/24 23:50 Urine Glucose (UA) Negative (NEGATIVE) 07/08/24 23:50 Urine Ketones Negative (NEGATIVE) 07/08/24 23:50 Urine Blood Negative (NEGATIVE) 07/08/24 23:50 Urine Nitrite Negative (NEGATIVE) 07/08/24 23:50 Urine Bilirubin Negative (NEGATIVE) 07/08/24 23:50 Urine Urobilinogen Normal (NORMAL) 07/08/24 23:50 Ur Leukocyte Esterase Negative (NEGATIVE) 07/08/24 23:50 Urine RBC 0-2 /HPF (0-3) 07/08/24 23:50 Urine WBC 0-2 /HPF (0-5) 07/08/24 23:50 Ur Squamous Epith Cells Rare /HPF (NEGATIVE) 07/08/24 23:50 Amorphous Sediment 1+ /HPF (NEGATIVE) 07/08/24 23:50 Urine Bacteria Trace /HPF (NEGATIVE) 07/08/24 23:50 Hyaline Casts Rare /LPF (NEGATIVE) 07/08/24 23:50 Urine Mucus Many /HPF (NEGATIVE) 07/08/24 23:50 Ur Culture Indicated? No/not indicated 07/08/24 23:50 Review of Systems Constitutional: Weakness Eyes: No Symptoms Reported ENT: No Symptoms Reported Respiratory: Shortness of Breath Cardiovascular: Edema Gastrointestinal: Melena Genitourinary: No Symptoms Reported Musculoskeletal: Back Pain Skin: No Symptoms Reported Neurological: No Symptoms Reported Physical Exam Vital Signs: Vital Signs Temperature 98.4 F Temperature 98.3 F Pulse Rate [Bilateral Radial] 99 Pulse Rate [Bilateral Radial] 113 Pulse Rate 112 Respiratory Rate 19 Respiratory Rate 19 Respiratory Rate 20 Respiratory Rate 20 Respiratory Rate 18 Blood Pressure [Right Arm] 123/72 Blood Pressure [Right Arm] 139/63 O2 Sat by Pulse Oximetry 94 O2 Sat by Pulse Oximetry 95 O2 Sat by Pulse Oximetry 98 Oriented: Normal Eyes: Normal Ear: Normal Nose: Normal Throat: Dry Respiratory: Diminished Throughout Cardiovascular: Other (DEFIBRILLATOR ) Auscultation: Bowel Sounds: Normal Palpation: Other (OBESE) Tenderness: Normal Skin: Decreased Turgur Musculoskeletal: Back:Thoracic, Back:Lumbar and Motor Deficit Psychiatric: Anxiety Mood Description: Anxious Affect: Anxious Speech Pattern: Clear and Appropriate Assessment/Plan (1) Rectal bleeding: Status: Acute Plan: CBC AND OCCULT STOOL ON ADMISSION HOLD ELIQUIS, BP CONTROL PAIN CONTROL STOOL STUDIES, RESP THERAPY AND BLOOD SUGAR CONTROL (2) Essential hypertension: Status: Active (3) Gastroesophageal reflux disease: Status: Active (4) Diabetes mellitus type 2: Status: Active (5) COPD (chronic obstructive pulmonary disease): Status: Acute (6) Afib: Status: Acute
[2024-07-09] MEDS: KLOR-CON 10 MEQ TAB PO SCH (14:20)
[2024-07-09] MEDS: LASIX PO SCH (14:21)
[2024-07-09] MEDS: SNACK - Diabetic Appropriate PO SCH (20:04)
[2024-07-09] MEDS ORDERED: ZESTRIL TAB 20 MG ONE (20:32)
[2024-07-09] MEDS: LIPITOR TAB 40 MG PO SCH (20:54)
[2024-07-09] MEDS: LOPRESSOR TAB 50 MG PO SCH (20:54)
[2024-07-09] MEDS: NYSTATIN POWDER TOP SCH (20:57)
[2024-07-09] MEDS: ZESTRIL TAB 20 MG PO SCH (23:57)
[2024-07-10 06:52] LABS: BASOPHILS % (AUTO) 0.2 % (0.2-1.0); EOSINOPHILS # (AUTO) 0.1 x10^3/uL (0.0-0.2); EOSINOPHILS % (AUTO) 1.1 % (0.9-2.9); HEMATOCRIT 27.6 % (36.0-47.0); HEMOGLOBIN 9.2 g/dL (12.0-16.0); LYMPHOCYTES # (AUTO) 0.8 X10^3/uL (1.3-2.9); LYMPHOCYTES % (AUTO) 17.2 % (21.0-51.0); MEAN CORPUSCULAR HEMOGLOBIN 35.1 pg (27.0-34.0); MEAN CORPUSCULAR HGB CONC 33.5 g/dL (33.0-35.0); MEAN CORPUSCULAR VOLUME 104.9 fL (80.0-100.0); MEAN PLATELET VOLUME 8.7 fL (7.4-11.0); MONOCYTES # (AUTO) 0.8 x10^3/uL (0.3-0.8); NEUTROPHILS # (AUTO) 2.9 x10^3/uL (2.2-4.8); NEUTROPHILS % (AUTO) 63.5 % (42.0-75.0); PLATELET COUNT 201 X10^3/uL (150.0-450.0); RED BLOOD COUNT 2.63 X10^6/uL (3.5-5.4); RED CELL DISTRIBUTION WIDTH 20.8 % (11.6-16.5); WHITE BLOOD COUNT 4.6 X10^3/uL (3.6-10.0)
[2024-07-10 07:05] LABS: ALANINE AMINOTRANSFERASE 22 Units/L (12-78); ALBUMIN 2.2 g/dL (3.4-5.0); ALKALINE PHOSPHATASE 57 Units/L (46-116); ASPARTATE AMINO TRANSFERASE 18 Units/L (15-37); BLOOD UREA NITROGEN 11 mg/dL (7-18); CALCIUM 8.1 mg/dL (8.5-10.1); CARBON DIOXIDE 29.1 mmol/L (21-32); CHLORIDE 101 mmol/L (98-107); COR CA(FOR HYPOALB) 9.5 mg/dL (8.5-10.1); CREATININE 0.76 mg/dL (0.55-1.02); GLUCOSE 99 mg/dL (65-99); MAGNESIUM 2.1 mg/dL (2.0-2.9); POTASSIUM 3.6 mmol/L (3.5-5.1); SODIUM 135 mmol/L (136-145); TOTAL PROTEIN 7.3 g/dL (6.4-8.2); eGFR NON BLACK RACES > 60 (>60)
[2024-07-10 08:01] LABS: ANISOCYTOSIS 1+; BAND NEUTROPHILS % 2 % (0-10); PLATELET MORPHOLOGY COMMENT NORMAL (NORMAL)
[2024-07-10] MEDS ORDERED: ZESTRIL TAB 20 MG ONE ×2 (08:39→21:10)
[2024-07-10] MEDS: SYNTHROID 25 mcg TAB PO SCH (08:48)
[2024-07-10] MEDS: NICOTINE PATCH TD SCH (08:49)
[2024-07-10] MEDS: NS 500 ML IV 500 ML IV ONE (09:26)
[2024-07-11 06:27] LABS: BASOPHILS % (AUTO) 0.3 % (0.2-1.0); EOSINOPHILS # (AUTO) 0.1 x10^3/uL (0.0-0.2); EOSINOPHILS % (AUTO) 1.3 % (0.9-2.9); HEMATOCRIT 28.1 % (36.0-47.0); HEMOGLOBIN 9.3 g/dL (12.0-16.0); LYMPHOCYTES # (AUTO) 1.3 X10^3/uL (1.3-2.9); LYMPHOCYTES % (AUTO) 29.8 % (21.0-51.0); MEAN CORPUSCULAR HEMOGLOBIN 34.7 pg (27.0-34.0); MEAN CORPUSCULAR HGB CONC 33.1 g/dL (33.0-35.0); MEAN CORPUSCULAR VOLUME 104.9 fL (80.0-100.0); MEAN PLATELET VOLUME 8.7 fL (7.4-11.0); MONOCYTES # (AUTO) 0.9 x10^3/uL (0.3-0.8); MONOCYTES % (AUTO) 19.4 % (0.0-13.0); NEUTROPHILS # (AUTO) 2.2 x10^3/uL (2.2-4.8); NEUTROPHILS % (AUTO) 49.2 % (42.0-75.0); PLATELET COUNT 208 X10^3/uL (150.0-450.0); RED BLOOD COUNT 2.68 X10^6/uL (3.5-5.4); RED CELL DISTRIBUTION WIDTH 20.8 % (11.6-16.5); WHITE BLOOD COUNT 4.5 X10^3/uL (3.6-10.0)
[2024-07-11 07:01] LABS: ANISOCYTOSIS 1+; PLATELET MORPHOLOGY COMMENT NORMAL (NORMAL)
[2024-07-11 07:12] LABS: ALANINE AMINOTRANSFERASE 24 Units/L (12-78); ALBUMIN 2.3 g/dL (3.4-5.0); ALKALINE PHOSPHATASE 59 Units/L (46-116); ASPARTATE AMINO TRANSFERASE 14 Units/L (15-37); BLOOD UREA NITROGEN 7 mg/dL (7-18); CALCIUM 8.3 mg/dL (8.5-10.1); CARBON DIOXIDE 28.1 mmol/L (21-32); CHLORIDE 101 mmol/L (98-107); COR CA(FOR HYPOALB) 9.7 mg/dL (8.5-10.1); CREATININE 0.74 mg/dL (0.55-1.02); GLUCOSE 101 mg/dL (65-99); POTASSIUM 3.3 mmol/L (3.5-5.1); SODIUM 138 mmol/L (136-145); TOTAL PROTEIN 7.5 g/dL (6.4-8.2); eGFR NON BLACK RACES > 60 (>60)
[2024-07-11 10:36] VITALS: BP 128/58; PULSE 100; TEMP 97.5; O2SAT 97
[2024-07-11] MEDS: ZESTRIL TAB 20 MG ONE (10:39)
[2024-07-11 14:45] VITALS: RESP 18
== END 2024-07-11 15:05 | disposition home or self-care (01) ==
LOC: MED/SURG
PROVIDERS: ADMIT Internal Medicine; ATTEND Internal Medicine

== ENCOUNTER 2024-08-14 11:32 | Inpatient (IN) ==
--- NOTE | 2024-08-14 12:15 | DR.FBACK ---
HPI Time Seen Time Seen by Provider: 08/14/24 12:14 PCP Primary Care Physician: CATRACHITA CALLAHAN Complaint Chief Complaint:: Patient has chronic back pain she has been in the [facility] for rehab she got out jul 28 and today she was suppose to have a appointment with catrachita callahan to follow up from the snf but by the time she got out her ride was gone and she needed a refil on her oxygen and pain medications. COVID-19 Coronavirus risk:travel/contact w/high risk person: No Has patient experienced Coronavirus symptoms: No Reviewed Nurses Notes Review: Yes Source History Provided: Patient Mode of Arrival Mode of Arrival: EMS Timing Onset of Chief Complaint: 08/14/24 PMH PMH Past Medical History: Yes Past Medical History: COPD, Coronary Artery Disease, Diabetes, GERD, Hypertension and Hypothyroidism Past Medical History Comment: a-fib, pacemaker Past Surgical History: Yes Surgical History: Angioplasty/Stents and Hysterectomy Family History History of Family Medical Conditions: Yes Family Medical History: Diabetes Mellitus, [place], Coronary Artery Disease and Hypertension Social History Does patient currently use any type of tobacco product: No Have you used tobacco products in the last 12 months: No Does any household member use tobacco: No Alcohol Use: None Do you use any recreational Drugs:: No Lives With: Family Lives Where: Home Travel Risk Coronavirus risk:travel/contact w/high risk person: No Has patient experienced Coronavirus symptoms: No Infectious screening In the last 2 months have you had wt loss of >10#?: NO Have you had fever, night sweats or hemotysis?: No Have you traveled outside the country in the last 6 months?: No Isolation: Standard ROS Review of Systems Constitutional: No Symptoms Reported Eyes: No Symptoms Reported ENTM: No Symptoms Reported Respiratoy: No Symptoms Reported Cardiovascular: No Symptoms Reported Gastrointestinal/Abdominal: No Symptoms Reported Genitourinary: No Symptoms Reported Neurological: No Symptoms Reported Musculoskeletal: No Symptoms Reported Integumentary: No Symptoms Reported Hematologic/Lymphatic: No Symptoms Reported Endocrine: No Symptoms Reported Psychiatric: No Symptoms Reported All Other Systems: Reviewed and Negative PE Vitals Vital Signs: Temp Pulse Resp BP Pulse Ox O2 Del Method O2 Flow Rate 08/15/24 00:00 79 97 08/15/24 00:00 120/59 08/14/24 23:45 87 98 08/14/24 23:30 76 98 08/14/24 23:30 118/59 08/14/24 23:24 78 98 08/14/24 23:00 73 98 08/14/24 23:00 133/60 08/14/24 22:45 73 98 08/14/24 22:30 74 99 08/14/24 22:30 120/56 08/14/24 22:15 71 98 08/14/24 22:09 84 99 08/14/24 22:09 107/58 08/14/24 22:00 72 98 08/14/24 21:46 74 98 08/14/24 21:30 75 98 08/14/24 21:15 73 95 08/14/24 21:00 71 97 08/14/24 20:45 70 98 08/14/24 20:41 74 96 08/14/24 20:15 71 08/14/24 20:00 68 100 08/14/24 20:00 68 100 08/14/24 20:00 122/59 08/14/24 20:00 122/59 08/14/24 19:45 68 99 08/14/24 19:30 65 99 08/14/24 19:30 120/60 08/14/24 19:15 73 99 08/14/24 19:15 112/55 08/14/24 19:37 22 08/14/24 19:00 66 98 08/14/24 19:00 114/56 08/14/24 18:45 68 97 08/14/24 18:30 70 98 08/14/24 18:30 111/54 08/14/24 18:15 69 97 08/14/24 18:01 65 98 08/14/24 18:01 137/59 08/14/24 18:00 68 98 08/14/24 17:45 68 100 08/14/24 17:31 67 96 08/14/24 17:31 93/46 08/14/24 17:30 65 96 08/14/24 17:15 61 99 08/14/24 17:10 65 98 08/14/24 16:15 64 134/60 97 Nasal Cannula 2 08/14/24 15:39 63 100/51 08/14/24 15:20 65 112/54 08/14/24 14:47 66 22 103/54 97 Nasal Cannula 2 08/14/24 14:43 19 08/14/24 12:33 19 08/14/24 11:44 98.2 F 80 17 120/58 98 Nasal Cannula General Limitations: No Limitations General Appearance: Alert Head Head Exam: Normal Inspection Eyes Eye exam: Normal Appearance ENT ENT Exam: Normal Exam Chest Chest Inspection: Normal Inspection Respiratory Respiratory Exam: Normal Lung Sounds Bilat Cardiovascular Cardiovascular Exam: Regular Rate, Normal Rhythm and Normal Heart Sounds; negative Systolic Murmur or Diastolic Murmur Abdominal Exam Abdominal Exam: Normal Inspection, Normal Bowel Sounds and Soft; negative Tenderness ROR Labs Reviewed 08/14/24 19:27 08/14/24 19:27 Laboratory: WBC 4.7 X10^3/uL (3.6-10.0) 08/14/24 19:27 RBC 2.51 X10^6/uL (3.5-5.4) L 08/14/24 19:27 Hgb 9.2 g/dL (12.0-16.0) L 08/14/24 19:27 Hct 27.6 % (36.0-47.0) L 08/14/24 19:27 MCV 109.9 fL (80.0-100.0) H 08/14/24 19:27 MCH 36.7 pg (27.0-34.0) H 08/14/24 19:27 MCHC 33.4 g/dL (33.0-35.0) 08/14/24 19:27 RDW 20.6 % (11.6-16.5) H 08/14/24 19:27 Plt Count 196 X10^3/uL (150.0-450.0) 08/14/24 19:27 Plt Count Comment Adequate (ADEQUATE) 08/14/24 19:27 MPV 7.9 fL (7.4-11.0) 08/14/24 19:27 Neut % (Auto) 54.7 % (42.0-75.0) 08/14/24 19:27 Lymph % (Auto) 30.9 % (21.0-51.0) 08/14/24 19:27 [place] % (Auto) 13.4 % (0.0-13.0) H 08/14/24 19:27 Eos % (Auto) 0.7 % (0.9-2.9) L 08/14/24 19:27 Baso % (Auto) 0.3 % (0.2-1.0) 08/14/24 19:27 Neut # (Auto) 2.6 x10^3/uL (2.2-4.8) 08/14/24 19: Lymph # (Auto) 1.5 X10^3/uL (1.3-2.9) 08/14/24 19: [place] # (Auto) 0.6 x10^3/uL (0.3-0.8) 08/14/24 19: Eos # (Auto) 0.0 x10^3/uL (0.0-0.2) 08/14/24 19: Baso # (Auto) 0.0 X10^3/uL (0.0-0.1) 08/14/24 19: Absolute Nucleated RBC 0.2 /100WBC 08/14/24 19: Plt Morphology Comment Normal (NORMAL) 08/14/24 19: RBC Morphology Abnormal (NORMAL) A 08/14/24 19:27 Anisocytosis 1+ A 08/14/24 19: Macrocytosis 1+ A 08/14/24 19: Stomatocytes Present 08/14/24 19: Sodium 138 mmol/L (136-145) 08/14/24 19: Corrected Sodium TNP 08/14/24 19: Potassium 4.8 mmol/L (3.5-5.1) 08/14/24 19: Chloride 104 mmol/L (98-107) 08/14/24 19: Carbon Dioxide 28.5 mmol/L (21-32) 08/14/24 19:27 BUN 27 mg/dL (7-18) H 08/14/24 19:27 Creatinine 1.24 mg/dL (0.55-1.02) H 08/14/24 19:27 Est GFR (MDRD) Af Amer 54 (>60) L 08/14/24 19: Est GFR (MDRD) Non-Af 45 (>60) L 08/14/24 19:27 Glucose 86 mg/dL (65-99) 08/14/24 19: Calcium 9.0 mg/dL (8.5-10.1) 08/14/24 19:27 Corrected Calcium 9.8 mg/dL (8.5-10.1) 08/14/24 19:27 Total Bilirubin 0.50 mg/dL (0.2-1.0) 08/14/24 19:27 AST 17 Units/L (15-37) 08/14/24 19:27 ALT 23 Units/L (12-78) 08/14/24 19:27 Alkaline Phosphatase 78 Units/L (46-116) 08/14/24 19:27 Total Protein 7.8 g/dL (6.4-8.2) 08/14/24 19:27 Albumin 3.0 g/dL (3.4-5.0) L 08/14/24 19:27 Globulin 4.8 g/dL (2.5-4.5) H 08/14/24 19:27 Albumin/Globulin Ratio 0.6 Ratio (1.1-2.1) L 08/14/24 19:27 Specimen Type Catherized urine 08/14/24 19:35 Urine Color Yellow (YELLOW) 08/14/24 19:35 Urine Appearance Hazy (CLEAR) 08/14/24 19:35 Urine pH 6.0 (5.0 - 8.0) 08/14/24 19:35 Ur Specific [place] 1.020 (1.000-1.030) 08/14/24 19:35 Urine Protein 2+ (NEGATIVE) 08/14/24 19:35 Urine Glucose (UA) Negative (NEGATIVE) 08/14/24 19:35 Urine Ketones Negative (NEGATIVE) 08/14/24 19:35 Urine Blood 2+ (NEGATIVE) 08/14/24 19:35 Urine Nitrite Positive (NEGATIVE) 08/14/24 19:35 Urine Bilirubin Negative (NEGATIVE) 08/14/24 19:35 Urine Urobilinogen Normal (NORMAL) 08/14/24 19:35 Ur Leukocyte Esterase 3+ (NEGATIVE) 08/14/24 19:35 Urine RBC 3-5 /HPF (0-3) A 08/14/24 19:35 Urine WBC Tntc /HPF (0-5) A 08/14/24 19:35 Ur Squamous Epith Cells Negative /HPF (NEGATIVE) 08/14/24 19:35 Urine Bacteria 3+ /HPF (NEGATIVE) 08/14/24 19:35 Ur Culture Indicated? Yes/culture set up 08/14/24 19:35 Opioid Opioid Risk Tool Age (Christ box if 16-45): No History of Preadolescent Sexual Abuse: No Total: 0 Total Score Risk Category: Low Risk Copyright: Mahamed MCQUEEN predicting aberrant behaviors Discharge Plan Discharge Plan Patient Disposition: 01 HOME, SELF-CARE Condition: Stable Prescriptions: No Action furosemide 40 mg Tablet 40 mg PO TID atorvastatin 40 mg Tablet 40 mg PO HS metformin 500 mg Tablet 500 mg PO BID lisinopril 20 mg Tablet 20 mg PO BID levothyroxine [Synthroid] 25 mcg Tablet 25 mcg PO DAILY diltiazem HCl 120 mg Tablet 120 mg PO DAILY metoprolol tartrate 50 mg Tablet 50 mg PO BID albuterol sulfate 90 mcg/actuation Hfa Aerosol Inhaler 1 puff INHALATION PRN PRN Centrum Women 18-400 mg-mcg Tablet 1 tab PO DAILY Eliquis 5 mg Tablet 5 mg PO DAILY hydrocodone-acetaminophen 5-325 mg tablet 1 tab PO Q4HR Novolin R Regular U100 Insulin 100 unit/mL Solution See Rx Instructions .ROUTE .COMPLEX Rx Instructions: sliding scale nicotine 21 mg/24 hr patch 24 hour 1 patch topical DAILY nystatin [Nystop] 100,000 unit/gram powder 1 applic topical QDAY Rx Instructions: apply to abdominal fold topically every day shift for reddened area levothyroxine [Synthroid] 25 mcg tablet DAILY Health Concerns: Post Hospitalization: new medications and changes needed to prevent readmission or further decline. Pt educated and given instructions on all concerns. Plan of Treatment: Continue with present treatment and follow up plan. Pt is to keep follow up appointment as instructed and take medications as ordered. Orders to Discharge Patient Discharge Orders: Transfer (Routine); Ordered 08/14/24 Ordered By: GRETEL PENN Follow ups/Referrals Follow ups/Referrals: ,Misc [Primary Care Provider] - 3 days Instructions Stand Alone Forms: Find Help Web Site, Post Hospital Follow Up Care
[2024-08-14] MEDS: ZOFRAN INJ 4 MG VIAL IM ONE (12:32)
[2024-08-14] MEDS: MORPHINE SULFATE INJ 4 MG IM ONE (12:33)
[2024-08-14] MEDS ORDERED: NORFLEX INJ ONE (14:40)
[2024-08-14] MEDS: NORFLEX INJ IM ONE (14:43)
[2024-08-14] MEDS ORDERED: PERCOCET TAB 5/325 MG ONE (19:22)
[2024-08-14] MEDS: PERCOCET TAB 5/325 MG PO ONE (19:37)
[2024-08-14 19:43] LABS: BASOPHILS % (AUTO) 0.3 % (0.2-1.0); EOSINOPHILS % (AUTO) 0.7 % (0.9-2.9); HEMATOCRIT 27.6 % (36.0-47.0); HEMOGLOBIN 9.2 g/dL (12.0-16.0); LYMPHOCYTES # (AUTO) 1.5 X10^3/uL (1.3-2.9); LYMPHOCYTES % (AUTO) 30.9 % (21.0-51.0); MEAN CORPUSCULAR HEMOGLOBIN 36.7 pg (27.0-34.0); MEAN CORPUSCULAR HGB CONC 33.4 g/dL (33.0-35.0); MEAN CORPUSCULAR VOLUME 109.9 fL (80.0-100.0); MEAN PLATELET VOLUME 7.9 fL (7.4-11.0); MONOCYTES # (AUTO) 0.6 x10^3/uL (0.3-0.8); MONOCYTES % (AUTO) 13.4 % (0.0-13.0); NEUTROPHILS # (AUTO) 2.6 x10^3/uL (2.2-4.8); NEUTROPHILS % (AUTO) 54.7 % (42.0-75.0); PLATELET COUNT 196 X10^3/uL (150.0-450.0); RED BLOOD COUNT 2.51 X10^6/uL (3.5-5.4); RED CELL DISTRIBUTION WIDTH 20.6 % (11.6-16.5); WHITE BLOOD COUNT 4.7 X10^3/uL (3.6-10.0)
[2024-08-14 19:50] LABS: ALANINE AMINOTRANSFERASE 23 Units/L (12-78); ALKALINE PHOSPHATASE 78 Units/L (46-116); ASPARTATE AMINO TRANSFERASE 17 Units/L (15-37); BLOOD UREA NITROGEN 27 mg/dL (7-18); CARBON DIOXIDE 28.5 mmol/L (21-32); CHLORIDE 104 mmol/L (98-107); COR CA(FOR HYPOALB) 9.8 mg/dL (8.5-10.1); CREATININE 1.24 mg/dL (0.55-1.02); GLUCOSE 86 mg/dL (65-99); POTASSIUM 4.8 mmol/L (3.5-5.1); SODIUM 138 mmol/L (136-145); TOTAL PROTEIN 7.8 g/dL (6.4-8.2); eGFR NON BLACK RACES 45 (>60)
[2024-08-14 20:01] LABS: BILIRUBIN,URINE NEGATIVE (NEGATIVE); BLOOD/HEMOGLOBIN,URINE 2+ (NEGATIVE); GLUCOSE, URINE NEGATIVE (NEGATIVE); KETONES,URINE NEGATIVE (NEGATIVE); LEUKOCYTE ESTERASE ,URINE 3+ (NEGATIVE); NITRITES,URINE POSITIVE (NEGATIVE); PROTEIN,URINE 2+ (NEGATIVE); UROBILINOGEN,URINE NORMAL (NORMAL)
[2024-08-14 20:11] LABS: APPEARANCE,URINE HAZY (CLEAR); COLOR,URINE YELLOW (YELLOW)
[2024-08-14 20:12] LABS: PLATELET MORPHOLOGY COMMENT NORMAL (NORMAL)
[2024-08-14 20:13] LABS: ANISOCYTOSIS 1+; STOMATOCYTES PRESENT
[2024-08-14 20:13] LABS: BACTERIA,URINE 3+ /HPF (NEGATIVE); SQUAMOUS EPITHELIAL CELL,UR NEGATIVE /HPF (NEGATIVE)
--- NOTE | 2024-08-14 21:23 | CT ---
EXAM: LUMBAR SPINE W/O CON HISTORY: chronic back pain she has been in the longterm for rehab she got out jul 28 and today she was sup pose to have a appointment with catrachita callahan to follow up from the longterm; COMPARISON: June 28, 2024 TECHNIQUE: Non-contrast axial CT images of the lumbar spine with sagittal and coronal reformats. Radiation dose: 1900.14 mGy-cm total DLP. FINDINGS: Findings are concerning for an acute inferior endplate compression fracture at the site of a Schmorl' s node at L2. Mild prevertebral soft tissue edema. [id number] multilevel degenerative disc and joint changes. Multilevel [id number] central canal stenosis and neural foraminal narrowing. Colonic diverticulosis. Otherwise, the imaged portion of the intra-abdominal structures are unremarkable. Soft tissues are unremarkable. IMPRESSION: Findings are concerning for an acute inferior endplate compression fracture at the site of a Schmorl' s node at L2. Mild prevertebral soft tissue edema. MRI could be obtained to assess the acuity if cl inically indicated. THIS IS AN ELECTRONICALLY VERIFIED FINAL REPORT 08/14/2024 9:20 PM - Electronically signed by Ulysses Castro MD
--- NOTE | 2024-08-14 23:15 | RAD ---
EXAM: CHEST, 1 VIEW HISTORY: chronic back pain she has been in the [facility] for rehab she got out jul 28 and today she was sup pose to have a appointment with catrachita callahan to follow up from the snf; COMPARISON: June 29, 2024 TECHNIQUE: Chest radiographic imaging, AP portable projection, 1 image FINDINGS: Mild cardiomegaly. Pacemaker wires in place. Diffuse increased interstitial markings centered on the jayro. No focal airspace disease. No pleural effusion. No pneumothorax. No acute osseous abnormality. IMPRESSION: Findings could represent acute cardiogenic edema and/or chronic changes. THIS IS AN ELECTRONICALLY VERIFIED FINAL REPORT 08/14/2024 11:12 PM - Electronically signed by Ulysses Castro MD
[2024-08-14] MEDS: ROCEPHIN VIAL 1 GRAM IVP ONE (23:33)
[2024-08-15] MEDS: ROCEPHIN VIAL 1 GRAM 1 G in NS 100 ML IV 100 ML IV STA (00:10)
[2024-08-15] MEDS ORDERED: ZOFRAN INJ 4 MG VIAL IVP PRN (00:11)
[2024-08-15] MEDS ORDERED: PROVENTIL NEB TX 0.083% 2.5MG/ 3ML NEB PRN (01:59)
[2024-08-15] MEDS: MORPHINE SULFATE INJ 2 MG INJ IVP PRN (05:43)
[2024-08-15 06:21] LABS: BASOPHILS % (AUTO) 0.2 % (0.2-1.0); EOSINOPHILS % (AUTO) 0.9 % (0.9-2.9); HEMATOCRIT 26.4 % (36.0-47.0); HEMOGLOBIN 8.7 g/dL (12.0-16.0); LYMPHOCYTES # (AUTO) 0.9 X10^3/uL (1.3-2.9); LYMPHOCYTES % (AUTO) 26.7 % (21.0-51.0); MEAN CORPUSCULAR HEMOGLOBIN 36.2 pg (27.0-34.0); MEAN CORPUSCULAR HGB CONC 32.8 g/dL (33.0-35.0); MEAN CORPUSCULAR VOLUME 110.1 fL (80.0-100.0); MEAN PLATELET VOLUME 7.6 fL (7.4-11.0); MONOCYTES # (AUTO) 0.5 x10^3/uL (0.3-0.8); MONOCYTES % (AUTO) 14.1 % (0.0-13.0); NEUTROPHILS % (AUTO) 58.1 % (42.0-75.0); PLATELET COUNT 172 X10^3/uL (150.0-450.0); RED CELL DISTRIBUTION WIDTH 20.8 % (11.6-16.5); WHITE BLOOD COUNT 3.4 X10^3/uL (3.6-10.0)
[2024-08-15 06:38] LABS: ALANINE AMINOTRANSFERASE 14 Units/L (12-78); ALBUMIN 2.9 g/dL (3.4-5.0); ALKALINE PHOSPHATASE 71 Units/L (46-116); ASPARTATE AMINO TRANSFERASE 17 Units/L (15-37); BLOOD UREA NITROGEN 26 mg/dL (7-18); CARBON DIOXIDE 27.3 mmol/L (21-32); CHLORIDE 101 mmol/L (98-107); CREATININE 1.01 mg/dL (0.55-1.02); GLUCOSE 95 mg/dL (65-99); MAGNESIUM 1.9 mg/dL (2.0-2.9); SODIUM 137 mmol/L (136-145); TOTAL PROTEIN 7.5 g/dL (6.4-8.2); eGFR NON BLACK RACES 56 (>60)
[2024-08-15 06:46] LABS: ANISOCYTOSIS 1+; CALCIUM 8.9 mg/dL (8.5-10.1); COR CA(FOR HYPOALB) 9.8 mg/dL (8.5-10.1); PLATELET MORPHOLOGY COMMENT NORMAL (NORMAL)
[2024-08-15] MEDS: NYSTATIN POWDER TOP SCH (08:56)
[2024-08-15] MEDS ORDERED: NORCO 5/325 MG TAB PO PRN (15:22)
--- NOTE | 2024-08-15 17:38 | DR.H&P ---
H&P History & Physical for Day of: H&P Date: 08/14/24 Chief Complaint Chief Complaint: WEAKNESS, SOB, INTRACTABLE BACK PAIN History of Present Illness History of Present Illness: PT IS 79WF, ER ADMISSION AFTER PRESNENT WITH CO W EKNESS Past Medical History Past Medical History: COPD, Coronary Artery Disease, Diabetes, GERD, Hypertension and Hypothyroidism Past Surgical History Surgical History: Angioplasty/Stents and Hysterectomy Family History Family Medical History: Diabetes Mellitus, [place], Coronary Artery Disease and Hypertension Social History Does patient currently use any type of tobacco product: No Have you used tobacco products in the last 12 months: No Type of Tobacco Use: None How many years tobacco product used: 45 Does any household member use tobacco: No Alcohol Use: None Medications Home Medications: Home Medications Medication Instructions Recorded Confirmed Type albuterol sulfate 90 mcg/actuation 1 puff inhalation PRN PRN 06/28/24 08/14/24 History aerosol inhaler apixaban 5 mg tablet (Eliquis) 5 mg PO DAILY 06/28/24 08/14/24 History atorvastatin 40 mg tablet 40 mg PO HS 06/28/24 08/14/24 History diltiazem HCl 120 mg tablet 120 mg PO DAILY 06/28/24 08/14/24 History furosemide 40 mg tablet 40 mg PO TID 06/28/24 08/14/24 History levothyroxine 25 mcg tablet 25 mcg PO DAILY 06/28/24 08/14/24 History (Synthroid) lisinopril 20 mg tablet 20 mg PO BID 06/28/24 08/14/24 History metformin 500 mg tablet 500 mg PO BID 06/28/24 08/14/24 History metoprolol tartrate 50 mg tablet 50 mg PO BID 06/28/24 08/14/24 History multivitamin-ferrous 1 tab PO DAILY 06/28/24 08/14/24 History fumarate-folic acid 18 mg-400 mcg tablet (Centrum Women) hydrocodone 5 mg-acetaminophen 325 1 tab PO Q4HR 07/08/24 08/14/24 History mg tablet insulin regular human 100 unit/mL See Rx Instructions .Route .COMPLEX 07/08/24 08/14/24 History injection solution (Novolin R Regular U-100 Insulin) nicotine 21 mg/24 hr daily 1 patch topical DAILY 07/08/24 08/14/24 History transdermal patch nystatin 100,000 unit/gram topical 1 applic topical QDAY 07/08/24 08/14/24 History powder (Nystop) levothyroxine 25 mcg tablet 25 mcg PO DAILY 08/14/24 08/15/24 History (Synthroid) Allergies Allergies Allergy/AdvReac Type Severity Reaction Status Date / Time No Known Drug Allergies Allergy Verified 08/14/24 11:53 Labs 08/15/24 06:12 08/15/24 06:12 Labs: 08/14/24 19:35 Urine,Catheterized Urine Culture - Preliminary Laboratory WBC 3.4 X10^3/uL (3.6-10.0) L 08/15/24 06:12 RBC 2.40 X10^6/uL (3.5-5.4) L 08/15/24 06:12 Hgb 8.7 g/dL (12.0-16.0) L 08/15/24 06:12 Hct 26.4 % (36.0-47.0) L 08/15/24 06:12 MCV 110.1 fL (80.0-100.0) H 08/15/24 06:12 MCH 36.2 pg (27.0-34.0) H 08/15/24 06:12 MCHC 32.8 g/dL (33.0-35.0) L 08/15/24 06:12 RDW 20.8 % (11.6-16.5) H 08/15/24 06:12 Plt Count 172 X10^3/uL (150.0-450.0) 08/15/24 06:12 Plt Count Comment Adequate (ADEQUATE) 08/15/24 06:12 MPV 7.6 fL (7.4-11.0) 08/15/24 06:12 Neut % (Auto) 58.1 % (42.0-75.0) 08/15/24 06:12 Lymph % (Auto) 26.7 % (21.0-51.0) 08/15/24 06:12 [place] % (Auto) 14.1 % (0.0-13.0) H 08/15/24 06:12 Eos % (Auto) 0.9 % (0.9-2.9) 08/15/24 06:12 Baso % (Auto) 0.2 % (0.2-1.0) 08/15/24 06:12 Neut # (Auto) 2.0 x10^3/uL (2.2-4.8) L 08/15/24 06:12 Lymph # (Auto) 0.9 X10^3/uL (1.3-2.9) L 08/15/24 06:12 [place] # (Auto) 0.5 x10^3/uL (0.3-0.8) 08/15/24 06:12 Eos # (Auto) 0.0 x10^3/uL (0.0-0.2) 08/15/24 06:12 Baso # (Auto) 0.0 X10^3/uL (0.0-0.1) 08/15/24 06:12 Absolute Nucleated RBC 0.2 /100WBC 08/15/24 06:12 Plt Morphology Comment Normal (NORMAL) 08/15/24 06:12 RBC Morphology Abnormal (NORMAL) A 08/15/24 06:12 Anisocytosis 1+ A 08/15/24 06:12 Macrocytosis 2+ A 08/15/24 06:12 Stomatocytes Present 08/14/24 19:27 Sodium 137 mmol/L (136-145) 08/15/24 06:12 Corrected Sodium TNP 08/15/24 06:12 Potassium 4.0 mmol/L (3.5-5.1) 08/15/24 06:12 Chloride 101 mmol/L (98-107) 08/15/24 06:12 Carbon Dioxide 27.3 mmol/L (21-32) 08/15/24 06:12 BUN 26 mg/dL (7-18) H 08/15/24 06:12 Creatinine 1.01 mg/dL (0.55-1.02) 08/15/24 06:12 Est GFR (MDRD) Af Amer > 60 (>60) 08/15/24 06:12 Est GFR (MDRD) Non-Af 56 (>60) L 08/15/24 06:12 Glucose 95 mg/dL (65-99) 08/15/24 06:12 POC Glucose (mg/dL) 110 mg/dL (65-99) H 08/15/24 16:09 Calcium 8.9 mg/dL (8.5-10.1) 08/15/24 06:12 Corrected Calcium 9.8 mg/dL (8.5-10.1) 08/15/24 06:12 Magnesium 1.9 mg/dL (2.0-2.9) L 08/15/24 06:12 Total Bilirubin 0.50 mg/dL (0.2-1.0) 08/15/24 06:12 AST 17 Units/L (15-37) 08/15/24 06:12 ALT 14 Units/L (12-78) 08/15/24 06:12 Alkaline Phosphatase 71 Units/L (46-116) 08/15/24 06:12 Total Protein 7.5 g/dL (6.4-8.2) 08/15/24 06:12 Albumin 2.9 g/dL (3.4-5.0) L 08/15/24 06:12 Globulin 4.6 g/dL (2.5-4.5) H 08/15/24 06:12 Albumin/Globulin Ratio 0.6 Ratio (1.1-2.1) L 08/15/24 06:12 Specimen Type Catherized urine 08/14/24 19:35 Urine Color Yellow (YELLOW) 08/14/24 19:35 Urine Appearance Hazy (CLEAR) 08/14/24 19:35 Urine pH 6.0 (5.0 - 8.0) 08/14/24 19:35 Ur Specific [place] 1.020 (1.000-1.030) 08/14/24 19:35 Urine Protein 2+ (NEGATIVE) 08/14/24 19:35 Urine Glucose (UA) Negative (NEGATIVE) 08/14/24 19:35 Urine Ketones Negative (NEGATIVE) 08/14/24 19:35 Urine Blood 2+ (NEGATIVE) 08/14/24 19:35 Urine Nitrite Positive (NEGATIVE) 08/14/24 19:35 Urine Bilirubin Negative (NEGATIVE) 08/14/24 19:35 Urine Urobilinogen Normal (NORMAL) 08/14/24 19:35 Ur Leukocyte Esterase 3+ (NEGATIVE) 08/14/24 19:35 Urine RBC 3-5 /HPF (0-3) A 08/14/24 19:35 Urine WBC Tntc /HPF (0-5) A 08/14/24 19:35 Ur Squamous Epith Cells Negative /HPF (NEGATIVE) 08/14/24 19:35 Urine Bacteria 3+ /HPF (NEGATIVE) 08/14/24 19:35 Ur Culture Indicated? Yes/culture set up 08/14/24 19:35 Review of Systems Constitutional: Weakness Eyes: No Symptoms Reported ENT: No Symptoms Reported Respiratory: Shortness of Breath and SOB with Excertion Cardiovascular: Edema Gastrointestinal: Melena Genitourinary: Frequency and Incontinence Musculoskeletal: Back Pain and Leg Pain Skin: No Symptoms Reported Neurological: Weakness Physical Exam Vital Signs: Vital Signs Temperature 98.0 F Temperature 97.8 F Pulse Rate [Brachial] 103 Pulse Rate [Brachial] 96 Respiratory Rate 20 Respiratory Rate 20 Respiratory Rate 22 Respiratory Rate 19 Respiratory Rate 20 Blood Pressure [Left Arm] 105/61 Blood Pressure [Left Arm] 105/56 O2 Sat by Pulse Oximetry 96 O2 Sat by Pulse Oximetry 95 Oriented: Normal Eyes: Normal Ear: Normal Nose: Normal Throat: Normal Respiratory: RLL Diminished and LLL Diminished Cardiovascular: Irregular and Edema Auscultation: Bowel Sounds: Normal Palpation: Normal Tenderness: LLQ Skin: Decreased Turgur Musculoskeletal: Back:Lumbar, Motor Deficit and Sensory Deficit Psychiatric: Anxiety Mood Description: Anxious Affect: Anxious Assessment/Plan (1) Intractable back pain: Status: Acute Plan: ADMIT, PAIN CONTROL ADMISSION LABS, VERIFY HOME MEDICATIONS ELECTROLYTE REPLACEMENT, IV HYDRATION I&OS, CXR ON ADMISSION, PT/OT CONSULT SUPPLEMENTAL O2. OCCULT STOOL IV ATBX FOR UTI (2) SOB (shortness of breath): Status: Acute (3) Anemia: Status: Acute (4) Diabetes mellitus type 2: Status: Active (5) COPD (chronic obstructive pulmonary disease): Status: Acute (6) Essential hypertension: Status: Active (7) Afib: Status: Acute (8) UTI (urinary tract infection): Status: Acute
[2024-08-15 17:59] VITALS: BMI 54.9
[2024-08-15] MEDS: NICOTINE PATCH TD SCH (18:32)
[2024-08-15] MEDS: NORCO 5/325 MG TAB PO SCH (18:32)
[2024-08-15] MEDS ORDERED: ZESTRIL TAB 20 MG ONE (20:09)
[2024-08-15] MEDS ORDERED: GLUCOPHAGE ONE (20:09)
[2024-08-15] MEDS: LIPITOR TAB 40 MG PO SCH (20:17)
[2024-08-15] MEDS: ZESTRIL TAB 20 MG PO SCH (20:17)
[2024-08-15] MEDS: LOPRESSOR TAB 50 MG PO SCH (20:17)
[2024-08-15] MEDS: GLUCOPHAGE PO SCH (20:17)
[2024-08-15] MEDS: ROCEPHIN VIAL 1 GRAM 1 G in NS 100 ML IV 100 ML IV SCH (20:18)
[2024-08-15] MEDS: NS 250 ML IV 250 ML IV ONE (20:29)
[2024-08-16] MEDS ORDERED: ZESTRIL TAB 20 MG ONE ×2 (07:10→20:15)
[2024-08-16] MEDS ORDERED: GLUCOPHAGE ONE ×2 (07:10→20:15)
[2024-08-16] MEDS: SYNTHROID 25 mcg TAB PO SCH (08:21)
[2024-08-16] MEDS: CARDIZEM CD 120 MG 24-HR PO SCH (08:21)
[2024-08-16] MEDS ORDERED: SYNTHROID 25 mcg TAB PO SCH (09:00)
[2024-08-16 09:21] LABS: BASOPHILS % (AUTO) 0.2 % (0.2-1.0); EOSINOPHILS # (AUTO) 0.1 x10^3/uL (0.0-0.2); EOSINOPHILS % (AUTO) 1.6 % (0.9-2.9); HEMOGLOBIN 8.4 g/dL (12.0-16.0); LYMPHOCYTES % (AUTO) 31.5 % (21.0-51.0); MEAN CORPUSCULAR HEMOGLOBIN 36.9 pg (27.0-34.0); MEAN CORPUSCULAR HGB CONC 33.5 g/dL (33.0-35.0); MEAN CORPUSCULAR VOLUME 110.2 fL (80.0-100.0); MONOCYTES # (AUTO) 0.4 x10^3/uL (0.3-0.8); MONOCYTES % (AUTO) 13.5 % (0.0-13.0); NEUTROPHILS # (AUTO) 1.7 x10^3/uL (2.2-4.8); NEUTROPHILS % (AUTO) 53.2 % (42.0-75.0); PLATELET COUNT 172 X10^3/uL (150.0-450.0); RED BLOOD COUNT 2.27 X10^6/uL (3.5-5.4); RED CELL DISTRIBUTION WIDTH 20.2 % (11.6-16.5); WHITE BLOOD COUNT 3.2 X10^3/uL (3.6-10.0)
[2024-08-16 09:39] LABS: ALANINE AMINOTRANSFERASE 19 Units/L (12-78); ALBUMIN 2.8 g/dL (3.4-5.0); ALKALINE PHOSPHATASE 67 Units/L (46-116); ASPARTATE AMINO TRANSFERASE 17 Units/L (15-37); BLOOD UREA NITROGEN 19 mg/dL (7-18); CARBON DIOXIDE 30.3 mmol/L (21-32); CHLORIDE 101 mmol/L (98-107); COR NA(FOR HYPERGLY) 137 mmol/L (136-145); GLUCOSE 125 mg/dL (65-99); SODIUM 136 mmol/L (136-145); TOTAL PROTEIN 7.4 g/dL (6.4-8.2); eGFR NON BLACK RACES > 60 (>60)
[2024-08-16 09:50] LABS: ANISOCYTOSIS 1+; PLATELET MORPHOLOGY COMMENT NORMAL (NORMAL)
[2024-08-17 06:23] LABS: BASOPHILS % (AUTO) 0.2 % (0.2-1.0); EOSINOPHILS % (AUTO) 1.3 % (0.9-2.9); HEMATOCRIT 23.7 % (36.0-47.0); HEMOGLOBIN 7.9 g/dL (12.0-16.0); LYMPHOCYTES # (AUTO) 1.1 X10^3/uL (1.3-2.9); LYMPHOCYTES % (AUTO) 36.7 % (21.0-51.0); MEAN CORPUSCULAR HEMOGLOBIN 36.7 pg (27.0-34.0); MEAN CORPUSCULAR HGB CONC 33.3 g/dL (33.0-35.0); MEAN CORPUSCULAR VOLUME 110.1 fL (80.0-100.0); MEAN PLATELET VOLUME 7.8 fL (7.4-11.0); MONOCYTES # (AUTO) 0.5 x10^3/uL (0.3-0.8); NEUTROPHILS # (AUTO) 1.3 x10^3/uL (2.2-4.8); NEUTROPHILS % (AUTO) 45.8 % (42.0-75.0); PLATELET COUNT 164 X10^3/uL (150.0-450.0); RED BLOOD COUNT 2.15 X10^6/uL (3.5-5.4); WHITE BLOOD COUNT 2.9 X10^3/uL (3.6-10.0)
[2024-08-17 06:38] LABS: ALANINE AMINOTRANSFERASE 17 Units/L (12-78); ALBUMIN 2.6 g/dL (3.4-5.0); ALKALINE PHOSPHATASE 73 Units/L (46-116); ASPARTATE AMINO TRANSFERASE 17 Units/L (15-37); BLOOD UREA NITROGEN 18 mg/dL (7-18); CALCIUM 8.6 mg/dL (8.5-10.1); CARBON DIOXIDE 28.9 mmol/L (21-32); CHLORIDE 105 mmol/L (98-107); COR CA(FOR HYPOALB) 9.7 mg/dL (8.5-10.1); CREATININE 0.84 mg/dL (0.55-1.02); GLUCOSE 97 mg/dL (65-99); POTASSIUM 4.5 mmol/L (3.5-5.1); SODIUM 138 mmol/L (136-145); TOTAL PROTEIN 6.9 g/dL (6.4-8.2); eGFR NON BLACK RACES > 60 (>60)
[2024-08-17 07:02] LABS: ANISOCYTOSIS SLIGHT; PLATELET MORPHOLOGY COMMENT NORMAL (NORMAL)
[2024-08-17] MEDS ORDERED: GLUCOPHAGE ONE ×2 (07:23→20:32)
[2024-08-17] MEDS ORDERED: ZESTRIL TAB 20 MG ONE ×2 (07:23→20:32)
[2024-08-17 08:46] LABS: RETICULOCYTE % 1.91 % (0.8-2.2)
[2024-08-17] MEDS: HEMOCYTE PLUS PO SCH (09:17)
--- NOTE | 2024-08-18 05:10 | RAD ---
EXAM:CHEST, 1 VIEWHISTORY:COPD, CHF, RESP FAILURE ;COMPARISON:08/14/2024FINDINGS:The cardiomediastinal silhouette is stable. Similar appearance of left-sided pacer wires.Developing bilateral airspace opacities. No pneumothorax or effusion.No acute osseous abnormality.IMPRESSION:Developing opacities which may be due to congestion/edema. Continued follow-up recommended.THIS IS AN ELECTRONICALLY VERIFIED FINAL REPORT08/18/2024 5:07 AM - Electronically signed by Oj Crawford MD
[2024-08-18 06:31] LABS: BASOPHILS % (AUTO) 0.2 % (0.2-1.0); EOSINOPHILS # (AUTO) 0.1 x10^3/uL (0.0-0.2); EOSINOPHILS % (AUTO) 2.1 % (0.9-2.9); HEMATOCRIT 22.8 % (36.0-47.0); HEMOGLOBIN 7.7 g/dL (12.0-16.0); LYMPHOCYTES % (AUTO) 35.4 % (21.0-51.0); MEAN CORPUSCULAR HEMOGLOBIN 37.3 pg (27.0-34.0); MEAN CORPUSCULAR HGB CONC 33.7 g/dL (33.0-35.0); MEAN CORPUSCULAR VOLUME 110.7 fL (80.0-100.0); MEAN PLATELET VOLUME 8.1 fL (7.4-11.0); MONOCYTES # (AUTO) 0.5 x10^3/uL (0.3-0.8); MONOCYTES % (AUTO) 16.3 % (0.0-13.0); NEUTROPHILS # (AUTO) 1.3 x10^3/uL (2.2-4.8); PLATELET COUNT 146 X10^3/uL (150.0-450.0); RED BLOOD COUNT 2.06 X10^6/uL (3.5-5.4); RED CELL DISTRIBUTION WIDTH 19.8 % (11.6-16.5); WHITE BLOOD COUNT 2.8 X10^3/uL (3.6-10.0)
[2024-08-18 06:48] LABS: ALANINE AMINOTRANSFERASE 17 Units/L (12-78); ALBUMIN 2.5 g/dL (3.4-5.0); ALKALINE PHOSPHATASE 79 Units/L (46-116); ASPARTATE AMINO TRANSFERASE 15 Units/L (15-37); BLOOD UREA NITROGEN 13 mg/dL (7-18); CALCIUM 8.5 mg/dL (8.5-10.1); CARBON DIOXIDE 29.5 mmol/L (21-32); CHLORIDE 104 mmol/L (98-107); COR CA(FOR HYPOALB) 9.7 mg/dL (8.5-10.1); CREATININE 0.81 mg/dL (0.55-1.02); GLUCOSE 106 mg/dL (65-99); SODIUM 138 mmol/L (136-145); TOTAL PROTEIN 6.7 g/dL (6.4-8.2); eGFR NON BLACK RACES > 60 (>60)
[2024-08-18 06:59] LABS: ANISOCYTOSIS SLIGHT; PLATELET MORPHOLOGY COMMENT NORMAL (NORMAL)
[2024-08-18] MEDS ORDERED: GLUCOPHAGE ONE (07:46)
[2024-08-18] MEDS ORDERED: ZESTRIL TAB 20 MG ONE (07:47)
[2024-08-18 12:09] VITALS: RESP 21
[2024-08-18 12:17] VITALS: BP 148/68; PULSE 82; TEMP 97.6; O2SAT 98
== END 2024-08-18 12:20 | DRG 690 ==
LOC: ER 11:32 → MED/SURG 11:32 → OBSVTOIN 08-15 00:01 → MED/SURG 08-15 00:41
PROVIDERS: ADMIT Internal Medicine; ATTEND Internal Medicine